=== PATIENT | male | born 1950 | race Caucasian/White ===

== ENCOUNTER → 2017-04-25 | Outpatient (CLI) | payer BC, MEDICARE ==
[2017-04-25 10:50] LABS: Blood Urea Nitrogen 14 mg/dL (9-20); Non-African American GFR(MDRD) >60 (>60 ml/min/1.73 sqM)
--- NOTE | 2017-04-25 12:46 | CT ---
EXAMINATION TYPE: CT abdomen pelvis w con DATE OF EXAM: 04/25/2017 COMPARISON: NONE HISTORY: Patient complains of dysuria and new diagnosis of prostate CA. CT DLP: 1337.5 mGycm Automated exposure control for dose reduction was used. CONTRAST: CT scan of the abdomen pelvis is performed with IV Contrast, patient injected with 100 mL of Omnipaqu e 300. FINDINGS- LUNG BASES-subsegmental linear changes at both lung bases. Correlate for atelectasis. LIVER/GB- No gross abnormality is appreciated. PANCREAS- No gross abnormality is seen. SPLEEN- No gross abnormality is seen. ADRENALS- No gross abnormality is seen. KIDNEYS/BLADDER- no hydronephrosis or nephrolithiasis. Multiple hypodensities are seen within the kid neys which are too small to characterize. BOWEL- no bowel dilatation. Normal appendix. LYMPH NODES- No greater than 1cm abdominal or pelvic lymph nodes areappreciated. OSSEOUS STRUCTURES-hypertrophic change of the spine.. OTHER- atherosclerotic change aorta but no evidence of aneurysm. Prostate is markedly enlarged with calcification and heterogeneous pattern which may be consistent the patient's history of prostate can cer. No regional pathologic adenopathy. Bladder appears distended bilateral hydroceles are noted. IMPRESSION- 1. Marked prostate enlargement compatible with patient's clinical history. Latter is distended with n o evidence of significant wall thickening. 2. Bilateral hydroceles 3. Renal lesions too small to characterize but likely related to cysts.
--- NOTE | 2017-04-25 15:03 | NM ---
EXAMINATION TYPE: NM bone scan whole body DATE OF EXAM: 04/25/2017 COMPARISON: CT abdomen pelvis earlier today. HISTORY: Prostate cancer. Delayed whole-body scanning was performed following the injection of 26.9 mCi Tc 99m MDP. Images acq uired 3.25 hours post injection. Additional imaging of the pelvis and multiple projections is acquire d. FINDINGS: No suspicious scintigraphic uptake is identified to the bone to suggest osseous metastatic disease or other significant osseous abnormality. Enlarged prostate gland causing mass effect on inferior adia n of the bladder is noted. IMPRESSION: No scintigraphic evidence of metastatic disease to the bone.
== END | disposition home or self-care (01) ==
LOC: RADNMMAIN 10:20
PROVIDERS: ATTEND Urology
DX: C61 Malignant neoplasm of prostate (principal); N28.89 Other specified disorders of kidney and ureter; N43.3 Hydrocele, unspecified
CPT/HCPCS: 82565; 84520; 74177; 78306; 36415; A9503; Q9967

== ENCOUNTER 2018-08-11 22:41 | Inpatient (IN) | payer MEDICARE ==
[2018-08-11] MEDS ORDERED: NITROGLYCERIN SL TABS 0.4 MG TAB SUBLINGUAL STA (22:52)
[2018-08-11] MEDS ORDERED: AZITHROMYCIN 500 MG in DEXTROSE 5% IN WATER 250 ML IVPB STA ×2 (22:53)
[2018-08-11] MEDS ORDERED: ACETAMINOPHEN IV (For NPO) 1,000 MG in EMPTY BAG 1 BAG IVPB ONE (22:53)
[2018-08-11 23:00] LABS: Basophils % (A) 0 %; Eosinophils # (A) 0.3 k/uL (0-0.7); Eosinophils % (A) 3 %; HCT 40.6 % (39.0-53.0); HGB 13.9 gm/dL (13.0-17.5); Lymphocytes # (A) 1.7 k/uL (1.0-4.8); Lymphocytes % (A) 18 %; MCH 30.2 pg (25.0-35.0); MCHC 34.2 g/dL (31.0-37.0); MCV 88.1 fL (80.0-100.0); Mean Platelet Volume 7.4; Monocytes # (A) 0.4 k/uL (0-1.0); Monocytes % (A) 4 %; Neutrophils # (A) 6.9 k/uL (1.3-7.7); Neutrophils % (A) 73 %; Platelet Count 315 k/uL (150-450); RBC 4.61 m/uL (4.30-5.90); RDW 13.1 % (11.5-15.5); WBC 9.5 k/uL (3.8-10.6)
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
[2018-08-11] MEDS ORDERED: NITROGLYCERIN-D5W PMX 50 MG in DEXTROSE/WATER 1 250ML.BAG IV ONE (23:01)
[2018-08-11 23:08] LABS: Partial Thromboplastin Time 22.8 sec (22.0-30.0); Prothrombin Time 10.1 sec (9.0-12.0)
--- NOTE | 2018-08-11 23:17 | XR ---
EXAMINATION TYPE: XR chest 1V DATE OF EXAM: 08/11/2018 COMPARISON: None HISTORY: Difficulty breathing TECHNIQUE: Single frontal view of the chest is obtained. FINDINGS: There is some blunting of right costophrenic angle. Heart is enlarged. There is 3 cm round ed density at the left pulmonary hilum. There are chest leads. Thoracic aorta is atheromatous. IMPRESSION: Small pleural effusions. Cardiomegaly. No overt heart failure. Possible mass at the left perihilum or in the left lower lobe. Comparison with old exam would be helpful. Follow-up recommende d.
[2018-08-11 23:30] LABS: Creatine Kinase MB 2.3 ng/mL (0.0-2.4)
[2018-08-12 00:23] LABS: Troponin I 0.037 ng/mL (0.000-0.034)
[2018-08-12 00:43] LABS: ALT 94 U/L (21-72); AST 171 U/L (17-59); Albumin 3.7 g/dL (3.5-5.0); Alkaline Phosphatase 120 U/L (38-126); Anion Gap 10 mmol/L; Blood Urea Nitrogen 20 mg/dL (9-20); Calcium 8.8 mg/dL (8.4-10.2); Carbon Dioxide 24 mmol/L (22-30); Chloride 108 mmol/L (98-107); Glucose 167 mg/dL (74-99); Potassium 4.2 mmol/L (3.5-5.1); Sodium 142 mmol/L (137-145); Total Bilirubin 0.6 mg/dL (0.2-1.3); Total Protein 6.7 g/dL (6.3-8.2)
[2018-08-12] MEDS ORDERED: NITROGLYCERIN OINT 1 INCH/GM PACKET TOPICAL STA (01:07)
[2018-08-12] MEDS ORDERED: NALOXONE 0.4 MG/ML 1 ML VIAL IV PRN (01:10)
[2018-08-12] MEDS ORDERED: ACETAMINOPHEN TAB 325 MG TAB PO PRN (01:43)
[2018-08-12] MEDS ORDERED: ASPIRIN 325 MG TAB PO STA (01:45)
[2018-08-12 01:50] LABS: Appearance,Urine Clear (Clear); Bacteria,Urine Rare /hpf; Bilirubin,Urine Negative (Negative); Blood,Urine Small (Negative); Cellular Casts,Urine 1 /lpf (0); Color,Urine Yellow; Glucose,Urine (UA) Negative (Negative); Granular Casts,Urine 13 /lpf (0); Hyaline Casts,Urine 3 /lpf (0-2); Ketones,Urine Negative (Negative); Leukocyte Esterase,Urine Negative (Negative); Mucus,Urine Rare /hpf; Nitrite,Urine Negative (Negative); PH, Urine 5.5 (5.0-8.0); Protein,Urine 2+ (Negative); RBC,Urine 1 /hpf (0-5); Specific Gravity,Urine 1.022 (1.001-1.035); Urobilinogen,Urine <2.0 mg/dL (<2.0); WBC,Urine 1 /hpf (0-5)
[2018-08-12] MEDS ORDERED: IPRATROPIUM-ALBUTEROL 3 ML NEB INHALATION PRN (01:55)
[2018-08-12] MEDS: HEPARIN SOD,PORK IN 0.45% NACL 25,000 UNIT in 0.45% NACL 1 500ML.BAG IV SCH ×2 (02:05→21:16)
[2018-08-12] MEDS: IPRATROPIUM-ALBUTEROL 3 ML NEB INHALATION SCH ×6 (03:22→23:38)
--- NOTE | 2018-08-12 03:44 | P.HPIM ---
History of Present Illness H&P Date: 08/12/18 Chief Complaint: Shortness of breath The patient is a 68-year-old male presents with a past medical history of prostate cancer status post radiation that presents to the ER with chief complaint of difficulty in breathing. Patient reports his usual state of health approximately last week when over the last 3 days he's been getting progressively short of breath. During that time the patient is noted a nonproductive cough and chest congestion for the last 5 days, Patient states that today he shortness of breath had increased exponentially. Over the last 3 days his reports that patient has been getting out of bed to sleep on the couch. He does report worsening shortness of breath with lying flat. Patient denies any cardiac history. He has any history of smoking. Patient denies any fever. No chest pain. No pain complaints whatsoever. Denies any swelling to the lower extremities. Patient reports intermittent diarrhea since having his radiation therapy, he denies any subjective fevers chills or night sweats. In the ER the patient was noted to be in respiratory distress and was placed on BiPAP, also significantly elevated blood pressures 170/91. He had a comprehensive workup including a chest x-ray that showed small pleural effusions , cardiomegaly, no overt heart failure and a possible mass in the left perihilar in the left lower lobe. NT proBNP was elevated at 2170, troponin elevated at 0.037, patient was started on nitroglycerin drip empiric IV antibiotics with Rocephin and azithromycin. EKG showing sinus tachycardia. Review of Systems Pertinent positives per HPI all other review of systems are otherwise negative Past Medical History Past Medical History: Prostate Disorder History of Any Multi-Drug Resistant Organisms: None Reported Past Surgical History: No Surgical Hx Reported Past Psychological History: No Psychological Hx Reported Smoking Status: Never smoker Past Alcohol Use History: None Reported Past Drug Use History: None Reported - Past Family History Father Family Medical History: Coronary Artery Disease (CAD) Mother Family Medical History: Coronary Artery Disease (CAD) Medications and Allergies Home Medications Medication Instructions Recorded Confirmed Type Loperamide HCl [Imodium A-D] 2 mg PO ONCE PRN 08/11/18 08/11/18 History Tamsulosin [Flomax] 0.4 mg PO HS 08/11/18 08/11/18 History Allergies Allergy/AdvReac Type Severity Reaction Status Date / Time No Known Allergies Allergy Verified 08/11/18 23:04 Physical Exam Vitals: Vital Signs Temp Pulse Pulse Resp BP BP Pulse Ox 08/11/18 23:17 100 30 H 161/76 08/11/18 23:05 106 H 30 H 155/81 94 L 08/11/18 23:00 32 H 08/11/18 22:57 113 H 32 H 170/91 94 L 08/11/18 22:55 97.8 F 117 H 30 H 179/87 94 L 08/11/18 22:43 101.2 F H 145 H 40 H 211/107 94 L Intake and Output 08/11/18 08/11/18 08/12/18 14:59 22:59 06:59 Other: Weight 90.718 kg Constitutional: No acute distress, conversant, pleasant Eyes: Anicteric sclerae, moist conjunctiva, no lid-lag, PERRLA ENMT: NC/AT,Oropharynx clear, no erythema, exudates Neck:Supple, FROM, no masses, or JVD, No carotid bruits; No thyromegaly Lungs: Diminished in the bases bibasilar crackles, Clear to percussion, mild respiratory distress with increased respiratory effort, with accessory muscle use when off BiPAP, oxygen sats 89% Cardiovascular: Heart regular in rate and rhythm, No murmurs, gallops, or rubs no peripheral edema Abdominal: Soft Nontender, nom distended, no guarding, no rebound or rigidity, Normoactive bowel sounds No hepatomegaly, No splenomegaly, No palpable mass No abdominal wall hernia noted Skin: Normal temperature, tone, texture, turgor, No induration No subcutaneous nodules, No rash, lesions, No ulcers Extremities:No digital cyanosis No clubbing, Pedal pulses intact and symmetrical Radial pulses intact and symmetrical Normal gait and station, No calf tenderness Psychiatric: Alert and oriented to person, place and time, Appropriate affect Intact judgement Neuro: Muscles Strength 5/5 in all 4 extremities, Sensation to light touch grossly present throughout, Cranial nerves II-XII grossly intact. No focal sensory deficits Results CBC & Chem 7: 08/11/18 22:49 08/11/18 22:49 Labs: Abnormal Lab Results - Last 24 Hours (Table) 08/11/18 08/11/18 08/12/18 Range/Units 22:49 22:49 00:47 Chloride 108 H (98-107) mmol/L Glucose 167 H (74-99) mg/dL AST 171 H (17-59) U/L ALT 94 H (21-72) U/L Total Creatine Kinase 173 H (55-170) U/L Troponin I 0.037 H* (0.000-0.034) ng/mL Urine Protein 2+ H (Negative) Urine Blood Small H (Negative) Urine Bacteria Rare H (None) /hpf Hyaline Casts 3 H (0-2) /lpf Urine Mucus Rare H (None) /hpf Assessment and Plan (1) Acute respiratory failure with hypoxia Current Visit: Yes Status: Acute Code(s): J96.01 - ACUTE RESPIRATORY FAILURE WITH HYPOXIA SNOMED Code(s): 54164233 (2) Dyspnea Current Visit: Yes Status: Acute Code(s): R06.00 - DYSPNEA, UNSPECIFIED SNOMED Code(s): 206432072 (3) Elevated brain natriuretic peptide (BNP) level Current Visit: Yes Status: Acute Code(s): R79.89 - OTHER SPECIFIED ABNORMAL FINDINGS OF BLOOD CHEMISTRY SNOMED Code(s): 467435636 (4) Elevated troponin Current Visit: Yes Status: Acute Code(s): R74.8 - ABNORMAL LEVELS OF OTHER SERUM ENZYMES SNOMED Code(s): 693084534 (5) Elevated blood pressure reading without diagnosis of hypertension Current Visit: Yes Status: Acute Code(s): R03.0 - ELEVATED BLOOD-PRESSURE READING, W/O DIAGNOSIS OF HTN SNOMED Code(s): 207902244 Plan: [facility] anticipated greater than 2 midnight stay, with acute respiratory failure With concern for underlying CHF given elevated protein BNP and cardiomegaly seen on chest x-ray, patient with bibasilar crackles. We'll continue workup with obtaining a 2-D echo, TSH, d- dimer consult cardiology and pulmonology for further recommendations. Patient started on aspirin given his elevated troponin, despite not having any chest pain we'll continue to trend his troponins the patient is initiated on heparin, pending d-dimer results and CTA of chest if needed. Chest x-ray suggesting possible mass in the perihilum of the left lower lobe. Will initiated the patient on breathing treatments continue BiPAP therapy. Continue nitroglycerin drip for hypertensive emergency and continue to follow patient's clinical course CODE STATUS Full code Discussed plan of care with family Medical power of civil attorney : Milena DVT prophylaxis; on heparin drip Anticipated discharge 3-5 days
--- NOTE | 2018-08-12 04:34 | CT ---
EXAMINATION TYPE: CT angio chest DATE OF EXAM: 08/12/2018 4:25 AM COMPARISON: None HISTORY: r/o PE CT DLP: 354 mGycm Automated exposure control for dose reduction was used. CONTRAST: CTA scan of the thorax is performed with IV Contrast, patient injected with 65 mL of Isovue 370, pulm onary embolism protocol. There are 3-D post processed images.. FINDINGS: There are bilateral pleural effusions and larger on the right side. Heart is enlarged. There is some infiltrate and atelectasis in the right lower lobe. There is 3.5 cm rounded soft tissue masslike density at the left pulmonary hilum. I see no filling defects in the common the arteries. There is no evidence of aortic aneurysm. Ascendi ng aorta measures 3.5 cm. There are few paratracheal lymph nodes that measure up to 1 cm. There are f ew bronchial lymph nodes that measure up to 1 cm. The bony thorax appears intact. IMPRESSION: NO EVIDENCE OF PULMONARY EMBOLISM. BILATERAL PLEURAL EFFUSIONS AND RIGHT BASILAR INFILTRATE AND ATELE CTASIS. SMALL INFILTRATE AND ATELECTASIS AT THE LEFT LUNG BASE. MASS AT THE LEFT PULMONARY HILUM IS SUSPICIOUS FOR TUMOR. THIS IS IN THE SUPERIOR SEGMENT LEFT LOWER LOBE. NONSPECIFIC MEDIASTINAL AND BRONCHIAL LYMPH NODES.
[2018-08-12] MEDS ORDERED: HEPARIN SODIUM,PORCINE 5,000 UNIT/ML 1 ML VIAL IV STA (08:58)
[2018-08-12] MEDS: METOPROLOL SUCCINATE (ER) 25 MG TAB.ER.24H PO SCH (12:38)
[2018-08-12] MEDS: LISINOPRIL 2.5 MG TAB PO SCH (12:38)
[2018-08-12] MEDS: FUROSEMIDE 10 MG/ML 4 ML VIAL IV SCH (12:38)
[2018-08-12] MEDS: LOPERAMIDE 2 MG CAP PO PRN ×2 (13:27→17:21)
--- NOTE | 2018-08-12 13:29 | P.PN ---
Progress Note - Text Progress Note Date: 08/12/18 patient admitted for SOB, and acute hypoxic respiratory failure, along with malignant hypertension found to have elevated troponins CTA negative for acute PE currently on heparin drip due to elevated troponins r/o NSTEMI ACS patient denies CP or shortness of breath at this time
--- NOTE | 2018-08-12 14:43 | ECHOF ---
Referral Reason:Acute Coronary Syndrome MEASUREMENTS -------- HEIGHT: 152.4 cm WEIGHT: 94.8 kg BP: RVIDd: 2.7 cm (< 3.3) IVSd: 1.2 cm (0.6 - 1.1) LVIDd: 6.7 cm (3.9 - 5.3) LVPWd: 1.5 cm (0.6 - 1.1) IVSs: 1.3 cm LVIDs: 5.3 cm LVPWs: 1.6 cm LA Diam: 4.3 cm (2.7 - 3.8) Ao Diam: 4.3 cm (2.0 - 3.7) AV Cusp: 2.1 cm (1.5 - 2.6) LA Diam: 3.4 cm (2.7 - 3.8) MV EXCURSION: 15.228 mm (> 18.000) MV EF SLOPE: 53 mm/s (70 - 150) EPSS: 1.3 cm MV E Reilly: 1.78 m/s MV DecT: 186 ms MV A Reilly: 1.26 m/s MV E/A Ratio: 1.41 FINDINGS -------- Sinus rhythm. This was a technically adequate study. The left ventricular size is normal. There is mild concentric left ventricular hypertrophy. Overa ll left ventricular systolic function is mild-moderately impaired with, an EF between 40 - 45 %. An terseptal Hypokinesis Septal Hypokinesis Peconic Hypokinesis. The right ventricle is normal in size. The left atrium is mildly dilated. The right atrial size is normal. 5.0mg OF Lumason UTLIZED: 2 OR MORE WALL SEGMENTS NOT VISUALIZED. There is mild aortic valve sclerosis. There is [id number] aortic regurgitation. Mild mitral annular calcification present. Moderate mitral regurgitation is present. Mild tricuspid regurgitation present. There is no evidence of pulmonary hypertension. The right v entricular systolic pressure, as measured by Doppler, is {RVSP}. There is no pulmonic regurgitation present. The aortic root size is normal. There is no pericardial effusion. CONCLUSIONS -------- 1. The left ventricular size is normal. 2. Overall left ventricular systolic function is mild-moderately impaired with, an EF between 40 - 45 %. 3. Anterseptal Hypokinesis 4. Septal Hypokinesis 5. [place]conic Hypokinesis. 6. The right ventricle is normal in size. 7. The left atrium is mildly dilated. 8. The right atrial size is normal. 9. 5.0mg OF Lumason UTLIZED: 2 OR MORE WALL SEGMENTS NOT VISUALIZED. 10. There is mild aortic valve sclerosis. 11. There is [id number] aortic regurgitation. 12. Mild mitral annular calcification present. 13. Moderate mitral regurgitation is present. 14. Mild tricuspid regurgitation present. 15. There is no evidence of pulmonary hypertension. 16. The right ventricular systolic pressure, as measured by Doppler, is {RVSP}. 17. There is no pulmonic regurgitation present. 18. The aortic root size is normal. 19. There is no pericardial effusion. SOCIAL SERVICES SPECIALIST: Khushbu Carmichael RDCS
--- NOTE | 2018-08-12 16:00 | P.CNPUL ---
History of Present Illness Consult date: 08/12/18 Reason for consult: dyspnea, chest pain History of present illness: A 68-year-old male patient presented emergency department because of worsening shortness of breath. The is at the bedside and she tells that he is essentially all negative and he does not presented to the hospital unless something major is happening to him. The patient admits that he was getting progressively more short of breath and he got to the point where he was unable to lay down flat and he was able to breathe better upon sitting or standing up. No pleurisy. No hemoptysis. No fever or chills. The patient was having on and off chest pain over the anterior chest without any radiation. No radiation to the back or neck. CAT scan of the chest was done and showed small bilateral pleural effusions. The patient was placed initially on a BiPAP to assist with the breathing and currently is off the BiPAP. He was off her diuretic therapy and the patient improved and this morning he is much less short of breath on 2 L of oxygen by nasal cannula. His proBNP level was above 2000. Troponins were minimally elevated there were positive. The patient was started on nitroglycerin drip to control the blood pressure in the chest pain. The patient was given empiric antibiotic coverage. The patient was started on IV Lasix. EKG showed sinus tachycardia. This morning is much more comfortable. No previous bouts of pneumonia. Most of COPD. No history of recurrent pneumonias. No other complaints otherwise. He is known to have prostate cancer status post radiation therapy to his prostate cancer. Review of Systems Constitutional: Denies chills, Denies fever Eyes: denies blurred vision, denies bulging eye, denies decreased vision Ears: deny: decreased hearing, ear discharge, earache, tinnitus Ears, nose, mouth and throat: Denies headache, Denies sore throat Cardiovascular: Reports decreased exercise tolerance, Reports dyspnea on exertion Respiratory: Reports dyspnea Gastrointestinal: Denies abdominal pain, Denies diarrhea, Denies nausea, Denies vomiting Genitourinary: Reports as per HPI Musculoskeletal: Denies myalgias Musculoskeletal: absent: ankle pain, ankle stiffness, ankle swelling Integumentary: Denies pruritus, Denies rash Neurological: Reports as per HPI Psychiatric: Denies anxiety, Denies depression Endocrine: Reports as per HPI Hematologic/Lymphatic: Reports as per HPI Allergic/Immunologic: Reports as per HPI Past Medical History Past Medical History: Prostate Disorder Additional Past Medical History / Comment(s): Prostate cancer radiation therapy 2017 (44 treatments) History of Any Multi-Drug Resistant Organisms: None Reported Past Surgical History: No Surgical Hx Reported Past Anesthesia/Blood Transfusion Reactions: No Reported Reaction Past Psychological History: No Psychological Hx Reported Smoking Status: Never smoker Past Alcohol Use History: None Reported Past Drug Use History: None Reported - Past Family History Father Family Medical History: Coronary Artery Disease (CAD) Mother Family Medical History: Coronary Artery Disease (CAD) Medications and Allergies Home Medications Medication Instructions Recorded Confirmed Type Loperamide HCl [Imodium A-D] 2 mg PO ONCE PRN 08/11/18 08/11/18 History Tamsulosin [Flomax] 0.4 mg PO HS 08/11/18 08/11/18 History Allergies Allergy/AdvReac Type Severity Reaction Status Date / Time No Known Allergies Allergy Verified 08/11/18 23:04 Physical Exam Vitals: Vital Signs Temp Pulse Pulse Resp BP BP Pulse Ox 08/12/18 15:34 76 16 08/12/18 12:19 82 08/12/18 12:07 80 08/12/18 12:00 97.6 F 76 16 143/73 96 08/12/18 08:33 80 08/12/18 08:21 78 95 08/12/18 08:00 97.3 F L 80 16 142/71 97 08/12/18 04:00 18 08/12/18 03:23 77 08/12/18 03:06 81 18 132/73 97 08/12/18 01:39 97.7 F 83 18 155/73 94 L 08/12/18 01:28 90 20 156/80 98 08/12/18 00:58 85 24 140/75 97 08/12/18 00:28 88 24 135/73 97 08/11/18 23:58 96 26 H 140/75 97 08/11/18 23:17 100 30 H 161/76 08/11/18 23:05 106 H 30 H 155/81 94 L 08/11/18 23:00 32 H 08/11/18 22:57 113 H 32 H 170/91 94 L 08/11/18 22:55 97.8 F 117 H 30 H 179/87 94 L 08/11/18 22:43 101.2 F H 145 H 40 H 211/107 94 L Intake and Output 08/12/18 08/12/18 08/12/18 06:59 14:59 22:59 Intake Total 40 404.001 Output Total 1050 Balance 40 -645.999 Intake: IV 40 .9 40 Intake, IV Titration 164.001 Amount Heparin Sod,Pork in 0.45% 164.001 NaCl 25,000 unit In 0.45 % NaCl 1 500ml.bag @ 20 mls/hr IV .Q24H [facility] Rx#: [id number] Oral 240 Output: Urine 1050 Other: Voiding Method Urinal Urinal # Voids 1 Weight 95.1 kg Constitutional: No acute distress, conversant, pleasant, the patient is currently off BiPAP on 2 L approximately nasal cannula. Eyes: Anicteric sclerae, moist conjunctiva, no lid-lag, PERRLA ENMT: NC/AT,Oropharynx clear, no erythema, exudates Neck:Supple, Neck was supple and without jugular venous distension, thyromegaly , or carotid bruits. Carotids were easily palpable bilaterally. There was no adenopathy. Lungs: Diminished in the bases bibasilar crackles, the breast on the diminished in lung bases bilaterally. No wheezing. No rhonchi. Chest expansion symmetrical bilaterally. Cardiovascular: Heart regular in rate and rhythm, No murmurs, gallops, or rubs no peripheral edema Abdominal: Soft Nontender, nom distended, no guarding, no rebound or rigidity, Normoactive bowel sounds No hepatomegaly, No splenomegaly, No palpable mass No abdominal wall hernia noted Skin: Normal temperature, tone, texture, turgor, No induration No subcutaneous nodules, No rash, lesions, No ulcers Extremities:No digital cyanosis No clubbing, Pedal pulses intact and symmetrical Radial pulses intact and symmetrical Normal gait and station, No calf tenderness Psychiatric: Alert and oriented to person, place and time, Appropriate affect Intact judgement Neuro: Muscles Strength 5/5 in all 4 extremities, Sensation to light touch grossly present throughout, Cranial nerves II-XII grossly intact. No focal sensory deficits Results - Laboratory Findings CBC and BMP: 08/11/18 22:49 08/11/18 22:49 PT/INR, D-dimer PT 10.1 sec (9.0-12.0) 10/05/18 22:49 INR 1.0 (<1.2) 08/11/18 22:49 D-Dimer 0.99 mg/L FEU (<0.60) H 08/11/18 22:49 Abnormal lab findings: Abnormal Labs 08/11/18 08/11/18 08/11/18 22:49 22:49 22:49 APTT D-Dimer 0.99 H Chloride 108 H Glucose 167 H AST 171 H ALT 94 H Total Creatine Kinase 173 H Troponin I 0.037 H* Urine Protein Urine Blood Urine Bacteria Hyaline Casts Urine Mucus 08/12/18 08/12/18 08/12/18 00:47 05:22 08:08 APTT 31.1 H D-Dimer Chloride Glucose AST ALT Total Creatine Kinase Troponin I 0.289 H* Urine Protein 2+ H Urine Blood Small H Urine Bacteria Rare H Hyaline Casts 3 H Urine Mucus Rare H 08/12/18 10:53 APTT D-Dimer Chloride Glucose AST ALT Total Creatine Kinase Troponin I 0.225 H* Urine Protein Urine Blood Urine Bacteria Hyaline Casts Urine Mucus - Diagnostic Findings Chest x-ray: image reviewed Assessment and Plan Plan: Assessment 1 Acute hypoxic respiratory failure secondary to CHF/pulmonary edema, improved with diuretic therapy and the patient is currently on 2 L of oxygen by nasal cannula. The patient was briefly supported with BiPAP therapy and currently is on 2 L and is currently off the BiPAP. 2 chest pain with positive troponins, rule out acute non-ST elevation myocardial infarction, currently free of any chest pain. The echocardiogram showing a segmental wall motion abnormalities in based on that the patient will need further investigation with a cardiac catheterization. 3 acute hypertensive reaction, improved and the patient is currently off the nitroglycerin drip 4 CHF with mild impairment of the left and a ejection fraction at 40-45% along with segmental wall motion abnormalities 5 prostate cancer with previous radiation therapy 6 hypertension Plan Continue diuretic therapy with Lasix 40 mg on a daily basis. Keep the patient off the BiPAP. Nitroglycerin may be weaned off and discontinued. Start metoprolol 25 mg by mouth daily and Zestril 2.5 mg by mouth daily. IV heparin. Cardiac catheterization with the next 24-48 hours and the patient has segmental wall motion abnormalities and positive troponin and an underlying coronary artery disease needs to be ruled out especially in the setting of acute chest pain and heart failure. Case was discussed. Cardiology is on the case. . No need for antibiotic therapy at this point in time. We'll continue to follow.
--- NOTE | 2018-08-12 18:00 | CONS ---
CONSULTATION CHIEF COMPLAINT: Shortness of breath. HISTORY OF PRESENT ILLNESS: Rudy is a 68-year-old gentleman with history of CA prostate, who presented to hospital with progressively worsening shortness of breath of 2 weeks duration. He states that he did a lot of physical work, cut many trees, but was becoming more and more short of breath. He did not have any chest pain. He comes into the hospital. His BNP is elevated. Troponins are mildly elevated as was the D-dimer. He had a CT scan of the chest that is negative for pulmonary embolism. He has small bilateral pleural effusions and has a left hilar mass. There is history of smoking, but he quit almost 11 years ago. His BNP is elevated and he also has small pleural effusion. EKG does not reveal acute ischemic changes. His clinical presentation is consistent with acute onset congestive heart failure. Patient also had a small non ST-segment elevation [place]. His symptoms may also be related to the left hilar mass. I am going to obtain a 2D echo on him to evaluate his LV function and wall motion. I am going to wait for the primary to evaluate the hilar mass. Once we know that it is not a malignancy, then we might consider doing a cardiac catheterization on him to evaluate his coronary anatomy if we have to. In the meantime, I am going to treat him with IV Lasix, beta blockers and BRITTNEY inhibitors. PAST MEDICAL HISTORY: Significant for CA of the prostate, status post radiation therapy. MEDICATIONS: He is on Flomax. ALLERGIES: No known drug allergies. FAMILY HISTORY: Negative for premature coronary artery disease. PHYSICAL EXAMINATION: Vital signs are stable. There is no jugular venous distention. Chest exam reveals occasional rhonchi bilaterally. Heart exam reveals first and second heart sounds. No gallop. No murmur. Abdomen is soft, nontender. Exam of extremities did not reveal any edema. Peripheral pulses are felt. F[employer]TING [employer]ACHINE [employer]ATOR exam did not reveal focal neurological deficits. EKG shows sinus tachycardia without acute ST-T wave changes. LAB: Showed that the hemoglobin is 13.9, potassium is 4.2, creatinine is 0.82. Two sets of troponins are elevated. D-dimer is abnormal, but CT chest is negative for pulmonary embolism. BNP is elevated. ASSESSMENT: 1. Acute onset congestive heart failure. 2. Acute non ST-segment elevation myocardial infarction. 3. Left hilar mass. PLAN: I am going to treat the patient with IV Lasix. Continue the IV heparin. I will obtain a 2D echo. Start him on BRITTNEY inhibitors and beta blockers. MMAGNES / ASHLEYN: [id number] /
[2018-08-12] MEDS: TAMSULOSIN 0.4 MG CAP.ER.24H PO SCH (20:25)
[2018-08-13] MEDS: IPRATROPIUM-ALBUTEROL 3 ML NEB INHALATION SCH ×6 (03:28→20:05)
[2018-08-13 06:36] LABS: Basophils % (A) 1 %; Eosinophils # (A) 0.2 k/uL (0-0.7); Eosinophils % (A) 3 %; HCT 36.1 % (39.0-53.0); HGB 11.9 gm/dL (13.0-17.5); Lymphocytes # (A) 0.9 k/uL (1.0-4.8); Lymphocytes % (A) 19 %; MCHC 32.8 g/dL (31.0-37.0); MCV 91.4 fL (80.0-100.0); Mean Platelet Volume 7.5; Monocytes # (A) 0.3 k/uL (0-1.0); Monocytes % (A) 6 %; Neutrophils # (A) 3.5 k/uL (1.3-7.7); Neutrophils % (A) 70 %; Platelet Count 203 k/uL (150-450); RBC 3.96 m/uL (4.30-5.90); RDW 13.3 % (11.5-15.5)
[2018-08-13 06:57] LABS: Anion Gap 6 mmol/L; Blood Urea Nitrogen 19 mg/dL (9-20); Calcium 8.7 mg/dL (8.4-10.2); Carbon Dioxide 27 mmol/L (22-30); Chloride 108 mmol/L (98-107); Cholesterol 154 mg/dL (<200); Glucose 90 mg/dL (74-99); HDL Cholesterol 46 mg/dL (40-60); LDL Cholesterol,Calculated 91 mg/dL (0-99); Potassium 3.7 mmol/L (3.5-5.1); Sodium 141 mmol/L (137-145); Triglycerides 87 mg/dL (<150)
[2018-08-13] MEDS ORDERED: HEPARIN SODIUM,PORCINE 5,000 UNIT/ML 1 ML VIAL IV STA (08:03)
[2018-08-13] MEDS: LISINOPRIL 2.5 MG TAB PO SCH (08:21)
[2018-08-13] MEDS: ASPIRIN 325 MG TAB PO SCH (08:21)
[2018-08-13] MEDS: FUROSEMIDE 10 MG/ML 4 ML VIAL IV SCH (08:21)
[2018-08-13] MEDS: METOPROLOL SUCCINATE (ER) 25 MG TAB.ER.24H PO SCH (08:21)
--- NOTE | 2018-08-13 11:18 | P.PN ---
Addendum entered and electronically signed by Sandee John ALLERGIST/MDKenishaC 08/13/18 13:40: Pulmonary mass at the left pulmonary hilum, noted on the CT angios of the chest. This will likely require a navigational bronchoscopy. Patient's may proceed with heart catheterization tomorrow, he will need cardiac clearance before proceeding with navigational bronchoscopy as it will require general anesthesia. This was discussed with cardiology, with the patient and the family. The first step is to optimize patient's cardiac status, and then proceed with workup of the left pulmonary hilar mass. Original Note: <Sandee John - Last Filed: 08/13/18 11:13> Subjective Progress Note Date: 08/13/18 Principal diagnosis: Acute hypoxic respiratory failure secondary to CHF/pulmonary edema, chest pain, rule out acute non-ST elevated MO A 68-year-old male patient presented emergency department because of worsening shortness of breath. The is at the bedside and she tells that he is essentially all negative and he does not presented to the hospital unless something major is happening to him. The patient admits that he was getting progressively more short of breath and he got to the point where he was unable to lay down flat and he was able to breathe better upon sitting or standing up. No pleurisy. No hemoptysis. No fever or chills. The patient was having on and off chest pain over the anterior chest without any radiation. No radiation to the back or neck. CAT scan of the chest was done and showed small bilateral pleural effusions. The patient was placed initially on a BiPAP to assist with the breathing and currently is off the BiPAP. He was off her diuretic therapy and the patient improved and this morning he is much less short of breath on 2 L of oxygen by nasal cannula. His proBNP level was above 2000. Troponins were minimally elevated there were positive. The patient was started on nitroglycerin drip to control the blood pressure in the chest pain. The patient was given empiric antibiotic coverage. The patient was started on IV Lasix. EKG showed sinus tachycardia. This morning is much more comfortable. No previous bouts of pneumonia. Most of COPD. No history of recurrent pneumonias. No other complaints otherwise. He is known to have prostate cancer status post radiation therapy to his prostate cancer. On 08/13/2018 patient seen in follow-up on selective care unit. He required BiPAP support last night, breathing easier, though he still has some difficulty breathing when laying down. Currently on 2 L per nasal cannula his pulse ox is 97%, he is afebrile, hemodynamically stable, lung sounds are positive for coarse bilateral lower bases crackles. He is diuresing, he is in -1300 mL fluid balance, his weight is down by 1.6 kg. He is on IV Lasix 40 mg once daily , remains on heparin. Has not had any recurrence of chest pain.He is scheduled for heart catheterization tomorrow. Objective - Vital Signs Vital signs: Vital Signs Temp 97.9 F 08/13/18 08:00 Pulse 80 08/13/18 08:38 Resp 18 08/13/18 08:26 BP 133/72 08/13/18 04:00 Pulse Ox 97 08/13/18 08:00 Intake & Output 08/12/18 08/13/18 08/13/18 18:59 06:59 18:59 Intake Total 404.001 436.997 532.961 Output Total 1050 1100 Balance -645.999 -663.003 532.961 Weight 93.5 kg Intake: Intake, IV Titration 164.001 316.997 292.961 Amount Heparin Sod,Pork in 0.45% 164.001 316.997 292.961 NaCl 25,000 unit In 0.45 % NaCl 1 500ml.bag @ 20 mls/hr IV .Q24H [facility] Rx#: [id number] Oral 240 120 240 Output: Urine 1050 1100 Other: Voiding Method Urinal Urinal # Voids 1 - Exam GENERAL EXAM: Alert, pleasant 5-year-old white male comfortable in no apparent distress. HEAD: Normocephalic/atraumatic. EYES: Normal reaction of pupils, equal size. Conjunctiva pink, sclera white. NOSE: Clear with pink turbinates. THROAT: No erythema or exudates. NECK: No masses, no JVD, no thyroid enlargement, no adenopathy. CHEST: No chest wall deformity. Symmetrical expansion. LUNGS: Equal air entry with coarse bibasilar crackles, but no wheeze, rhonchi or dullness. CVS: Regular rate and rhythm, normal S1 and S2, no gallops, no murmurs, no rubs ABDOMEN: Soft, nontender. No hepatosplenomegaly, normal bowel sounds, no guarding or rigidity. EXTREMITIES: No clubbing, no edema, no cyanosis, 2+ pulses and upper and lower extremities. MUSCULOSKELETAL: Muscle strength and tone normal. SPINE: No scoliosis or deformity SKIN: No rashes CENTRAL NERVOUS SYSTEM: Alert and oriented -3. No focal deficits, tone is normal in all 4 extremities. PSYCHIATRIC: Alert and oriented -3. Appropriate affect. Intact judgment and insight. - Labs CBC & Chem 7: 08/13/18 06:06 08/13/18 06:06 Labs: Abnormal Lab Results - Last 24 Hours (Table) 08/12/18 08/12/18 08/13/18 Range/Units 10:53 15:11 06:06 RBC (4.30-5.90) m/uL Hgb (13.0-17.5) gm/dL Hct (39.0-53.0) % Lymphocytes # (1.0-4.8) k/uL APTT 49.0 H (22.0-30.0) sec Chloride 108 H (98-107) mmol/L Troponin I 0.225 H* (0.000-0.034) ng/mL 08/13/18 08/13/18 Range/Units 06:06 06:06 RBC 3.96 L (4.30-5.90) m/uL Hgb 11.9 L (13.0-17.5) gm/dL Hct 36.1 L (39.0-53.0) % Lymphocytes # 0.9 L (1.0-4.8) k/uL APTT 40.0 H (22.0-30.0) sec Chloride (98-107) mmol/L Troponin I (0.000-0.034) ng/mL Microbiology - Last 24 Hours (Table) 08/11/18 22:49 Blood Culture - Preliminary Blood No Growth after 24 hours 08/12/18 00:47 Urine Culture - Preliminary Urine,Voided Assessment and Plan Plan: 1 Acute hypoxic respiratory failure secondary to CHF/pulmonary edema, improved with diuretic therapy and the patient is currently on 2 L of oxygen by nasal cannula. The patient was briefly supported with BiPAP therapy and currently is on 2 L and is currently off the BiPAP. 2 chest pain with positive troponins, rule out acute non-ST elevation myocardial infarction, currently free of any chest pain. The echocardiogram showing a segmental wall motion abnormalities in based on that the patient will need further investigation with a cardiac catheterization. 3 acute hypertensive reaction, improved and the patient is currently off the nitroglycerin drip 4 CHF with mild impairment of the left and a ejection fraction at 40-45% along with segmental wall motion abnormalities 5 prostate cancer with previous radiation therapy 6 hypertension Plan: Continue the IV diuretics, BiPAP as needed. Patient has been scheduled for heart catheterization tomorrow. We'll continue to follow I performed a history & physical examination of the patient and discussed their management with my nurse practitioner, Sandee John. I reviewed the nurse practitioner's note and agree with the documented findings and plan of care. Lung sounds are positive for coarse bibasilar crackles. The findings and the impression was discussed with the patient. I attest to the documentation by the nurse practitioner. Time with Patient: Less than 30 <Soledad Joiner - Last Filed: 08/13/18 14:41> Objective - Vital Signs Vital signs: Vital Signs Temp 98.0 F 08/13/18 12:00 Pulse 72 08/13/18 12:10 Resp 18 08/13/18 12:00 BP 145/77 08/13/18 12:00 Pulse Ox 96 08/13/18 12:00 Intake & Output 08/12/18 08/13/18 08/13/18 18:59 06:59 18:59 Intake Total 404.001 436.997 652.961 Output Total 1050 1100 900 Balance -645.999 -663.003 -247.039 Weight 93.5 kg Intake: Intake, IV Titration 164.001 316.997 292.961 Amount Heparin Sod,Pork in 0.45% 164.001 316.997 292.961 NaCl 25,000 unit In 0.45 % NaCl 1 500ml.bag @ 20 mls/hr IV .Q24H [facility] Rx#: [id number] Oral 240 120 360 Output: Urine 1050 1100 900 Other: Voiding Method Urinal Urinal # Voids 1 - Labs CBC & Chem 7: 08/13/18 06:06 08/13/18 06:06 Labs: Abnormal Lab Results - Last 24 Hours (Table) 10/06/18 10/07/18 10/07/18 Range/Units 15:11 06:06 06:06 RBC 3.96 L (4.30-5.90) m/uL Hgb 11.9 L (13.0-17.5) gm/dL Hct 36.1 L (39.0-53.0) % Lymphocytes # 0.9 L (1.0-4.8) k/uL APTT 49.0 H (22.0-30.0) sec Chloride 108 H (98-107) mmol/L 08/13/18 Range/Units 06:06 RBC (4.30-5.90) m/uL Hgb (13.0-17.5) gm/dL Hct (39.0-53.0) % Lymphocytes # (1.0-4.8) k/uL APTT 40.0 H (22.0-30.0) sec Chloride (98-107) mmol/L Microbiology - Last 24 Hours (Table) 08/12/18 00:47 Urine Culture - Final Urine,Voided 08/11/18 22:49 Blood Culture - Preliminary Blood No Growth after 24 hours Assessment and Plan Plan: Review the CAT scan of the chest and there is a suspicious infrahilar left lung mass that needs to be addressed later stage. We'll complete the cardiac workup and subsequently the patient would likely need a bronchoscopy which I prefer to do it under navigational guidance regarding this left hilar mass. We'll continue to follow.
--- NOTE | 2018-08-13 12:39 | P.PN ---
Subjective Progress Note Date: 08/13/18 Principal diagnosis: Patient is followed up for acute hypoxic respiratory failure secondary to new onset acute left-sided systolic CHF with concerns for underlying NSTEMI Patient seen and examined today, he is currently not on BiPAP, he is breathing better still complaining of orthopnea, denies any further chest pain. Patient has been diuresing well currently on negative balance. Denies any shortness of breath at rest. Patient was updated about his test results. Patient is anticipating left heart cath in the morning Objective - Vital Signs Vital signs: Vital Signs Temp 97.9 F 08/13/18 08:00 Pulse 72 08/13/18 12:10 Resp 16 08/13/18 11:59 BP 133/72 08/13/18 04:00 Pulse Ox 97 08/13/18 08:00 Intake & Output 08/12/18 08/13/18 08/13/18 18:59 06:59 18:59 Intake Total 404.001 436.997 532.961 Output Total 1050 1100 Balance -645.999 -663.003 532.961 Weight 93.5 kg Intake: Intake, IV Titration 164.001 316.997 292.961 Amount Heparin Sod,Pork in 0.45% 164.001 316.997 292.961 NaCl 25,000 unit In 0.45 % NaCl 1 500ml.bag @ 20 mls/hr IV .Q24H [facility] Rx#: [id number] Oral 240 120 240 Output: Urine 1050 1100 Other: Voiding Method Urinal Urinal # Voids 1 - Exam Constitutional: vital signs stable, Not in acute distress, pleasant, conversant Lungs: Good breath sounds bilaterally, there is inspiratory rales at left lung base , normal respiratory effort no use of accessory muscles Cardiovascular: Regular rate and rhythm, no murmurs, no gallops, no rubs, no peripheral edema Gastrointestinal: Soft, no tenderness to palpation, no palpable hepatosplenomegally, bowel sounds positive Extremities: No digital cyanosis or clubbing, peripheral pulses palpable and equal over bilateral radial arteries and dorsalis pedis artery, no calf muscle tenderness Psych: Alert, oriented to place, person and time, appropriate affect, intact judgment - Labs CBC & Chem 7: 08/13/18 06:06 08/13/18 06:06 Labs: Abnormal Lab Results - Last 24 Hours (Table) 08/12/18 08/13/18 08/13/18 Range/Units 15:11 06:06 06:06 RBC 3.96 L (4.30-5.90) m/uL Hgb 11.9 L (13.0-17.5) gm/dL Hct 36.1 L (39.0-53.0) % Lymphocytes # 0.9 L (1.0-4.8) k/uL APTT 49.0 H (22.0-30.0) sec Chloride 108 H (98-107) mmol/L 08/13/18 Range/Units 06:06 RBC (4.30-5.90) m/uL Hgb (13.0-17.5) gm/dL Hct (39.0-53.0) % Lymphocytes # (1.0-4.8) k/uL APTT 40.0 H (22.0-30.0) sec Chloride (98-107) mmol/L Microbiology - Last 24 Hours (Table) 08/12/18 00:47 Urine Culture - Final Urine,Voided 08/11/18 22:49 Blood Culture - Preliminary Blood No Growth after 24 hours Assessment and Plan Assessment: 68-year-old male with history of prostate cancer status post radiation therapy. Patient presented to the ED due to acute onset difficulty in breathing he was found to be in acute hypoxic respiratory failure along with malignant hypertension. CT angiogram the chest was performed in the ED initially which was negative for acute PE. Patient had elevated cardiac enzymes for which was suspicious for non-STEMI and he was started on heparin drip for that. Further testing with 2-D echocardiogram revealed segmental wall hypokinesis, with acute left systolic CHF left ventricular ejection fraction of 4045 percent. Patient has been diuresing well on IV Lasix currently on negative balance lost around 4 pounds of weight. Plans for left heart cath in the morning Plan: Acute hypoxic respiratory failure secondary to pulmonary edema Malignant hypertension New onset CHF Non-STEMI Continue with IV diuresis, patient continues to be on negative balance Continue with heparin drip Plans for left heart cath in the morning Continue with aspirin Continue with lisinopril and metoprolol History of prostate cancer status post radiation therapy Continue Flomax Mild anemia Asymptomatic No evidence of GI bleeding DVT prophylaxis Patient currently on heparin drip for non-STEMI
--- NOTE | 2018-08-13 14:52 | P.PN ---
Subjective Progress Note Date: 08/13/18 This is a 5-year-old male patient who presented to hospital with increasing shortness of breath 2 weeks. Patient is normally physically active but noticed that he was becoming more more short of breath. He denies any chest discomfort at that time. Pro BNP was found to be elevated and chest x- ray showed some congestive heart failure. Troponins were also elevated consistent with acute NSTEMI. Patient does not have a history of cardiac disease in the past. He's been started on IV heparin and IV Lasix, BRITTNEY inhibitor and beta víctor therapy. Echocardiogram showed a normal LV size with moderately impaired function with ejection fraction of 40-45%. Anterior septal, septal and apex hypokinesis. The patient continues to diurese. He is hemodynamically stable. Remains in a normal sinus mechanism on the monitor. He has not had any chest discomfort overnight and his shortness breath has improved. He does have orthopnea and is afraid to lie down flat while he sleeps. Minimal shortness of breath with exertion while he ambulates to the bathroom. Objective - Vital Signs Vital signs: Vital Signs Temp 98.0 F 08/13/18 12:00 Pulse 72 08/13/18 12:10 Resp 18 08/13/18 12:00 BP 145/77 08/13/18 12:00 Pulse Ox 96 08/13/18 12:00 Intake & Output 08/12/18 08/13/18 08/13/18 18:59 06:59 18:59 Intake Total 404.001 436.997 652.961 Output Total 1050 1100 900 Balance -645.999 -663.003 -247.039 Weight 93.5 kg Intake: Intake, IV Titration 164.001 316.997 292.961 Amount Heparin Sod,Pork in 0.45% 164.001 316.997 292.961 NaCl 25,000 unit In 0.45 % NaCl 1 500ml.bag @ 20 mls/hr IV .Q24H [facility] Rx#: [id number] Oral 240 120 360 Output: Urine 1050 1100 900 Other: Voiding Method Urinal Urinal # Voids 1 - Exam GENERAL EXAM: Alert, pleasant 68-year-old white male comfortable in no apparent distress. NECK: No masses, no JVD, no thyroid enlargement, no adenopathy. LUNGS: Equal air entry with fine bibasilar crackles, but no wheeze, rhonchi or dullness. Heart: Regular rate and rhythm, normal S1 and S2, no gallops, no murmurs, no rubs ABDOMEN: Soft, nontender. No hepatosplenomegaly, normal bowel sounds, no guarding or rigidity. EXTREMITIES: No clubbing, no edema, no cyanosis, 2+ pulses and upper and lower extremities. PSYCHIATRIC: Alert and oriented -3. Appropriate affect. Intact judgment and insight. - Labs CBC & Chem 7: 08/13/18 06:06 08/13/18 06:06 Labs: Abnormal Lab Results - Last 24 Hours (Table) 08/12/18 08/13/18 08/13/18 Range/Units 15:11 06:06 06:06 RBC 3.96 L (4.30-5.90) m/uL Hgb 11.9 L (13.0-17.5) gm/dL Hct 36.1 L (39.0-53.0) % Lymphocytes # 0.9 L (1.0-4.8) k/uL APTT 49.0 H (22.0-30.0) sec Chloride 108 H (98-107) mmol/L 08/13/18 Range/Units 06:06 RBC (4.30-5.90) m/uL Hgb (13.0-17.5) gm/dL Hct (39.0-53.0) % Lymphocytes # (1.0-4.8) k/uL APTT 40.0 H (22.0-30.0) sec Chloride (98-107) mmol/L Microbiology - Last 24 Hours (Table) 08/12/18 00:47 Urine Culture - Final Urine,Voided 08/11/18 22:49 Blood Culture - Preliminary Blood No Growth after 24 hours Assessment and Plan Assessment: Acute NSTEMI Acute systolic heart failure Acute hypoxic respiratory failure with evidence of hilar mass on CT Prostate cancer status post radiation therapy Hypertension Plan: Echocardiogram shows normal LV size with mild to moderate impaired systolic function, EF is 40-45%. Anterior septal, septal and apex hypokinesis noted. The patient's abnormal CAT scan was discussed with pulmonology and they are recommending to proceed with cardiac catheterization. Patient will be continued on heparin and Lasix. Preoperative cardiac catheterization orders have been entered. The rationale, risks and benefits have been discussed with the patient and he is in agreement to this treatment plan. He'll be kept nothing by mouth after midnight.
[2018-08-13] MEDS: HEPARIN SOD,PORK IN 0.45% NACL 25,000 UNIT in 0.45% NACL 1 500ML.BAG IV SCH (16:28)
[2018-08-13] MEDS ORDERED: IPRATROPIUM-ALBUTEROL 3 ML NEB INHALATION PRN (20:00)
[2018-08-13] MEDS: TAMSULOSIN 0.4 MG CAP.ER.24H PO SCH (20:33)
[2018-08-14] MEDS: SODIUM CHLORIDE 0.9% 1,000 ML IV SCH ×4 (05:48→21:47)
[2018-08-14] MEDS ORDERED: ATORVASTATIN 80 MG TAB PO STA (05:48)
[2018-08-14] MEDS: LISINOPRIL 2.5 MG TAB PO SCH (05:52)
[2018-08-14] MEDS: METOPROLOL SUCCINATE (ER) 25 MG TAB.ER.24H PO SCH (05:53)
[2018-08-14] MEDS: ASPIRIN 325 MG TAB PO SCH (05:53)
[2018-08-14] MEDS: IPRATROPIUM-ALBUTEROL 3 ML NEB INHALATION SCH ×4 (06:52→20:09)
[2018-08-14 07:03] LABS: HCT 34.5 % (39.0-53.0); HGB 11.3 gm/dL (13.0-17.5); MCH 29.7 pg (25.0-35.0); MCHC 32.6 g/dL (31.0-37.0); MCV 90.9 fL (80.0-100.0); Mean Platelet Volume 7.6; Platelet Count 200 k/uL (150-450); RDW 13.3 % (11.5-15.5); WBC 5.8 k/uL (3.8-10.6)
[2018-08-14 07:16] LABS: Anion Gap 6 mmol/L; Blood Urea Nitrogen 21 mg/dL (9-20); Calcium 8.5 mg/dL (8.4-10.2); Carbon Dioxide 28 mmol/L (22-30); Chloride 109 mmol/L (98-107); Glucose 97 mg/dL (74-99); Potassium 3.5 mmol/L (3.5-5.1); Sodium 143 mmol/L (137-145)
[2018-08-14] MEDS ORDERED: Potassium Replacement Protocol 1 EACH MISC MISCELLANE PRN (08:33)
[2018-08-14] MEDS: POTASSIUM CHLORIDE ER 20 MEQ TAB.ER PO SCH ×2 (09:03→15:04)
[2018-08-14] MEDS ORDERED: IV FLUID CONTINUATION 1,000 ML IV ONE ×2 (09:46→12:28)
[2018-08-14] MEDS ORDERED: LIDOCAINE 1% INJ 10MG/ML (20 ML MDV) ONE ×2 (09:54→12:05)
[2018-08-14] MEDS ORDERED: MIDAZOLAM 2 MG/2 ML VIAL ONE ×2 (09:54→12:05)
[2018-08-14] MEDS ORDERED: fentaNYL (PF) 50 MCG/ML 2 ML AMP ONE (09:54)
[2018-08-14] MEDS ORDERED: MIDAZOLAM 2 MG/2 ML VIAL IV ONE ×2 (10:25→12:28)
[2018-08-14] MEDS ORDERED: fentaNYL (PF) 50 MCG/ML 2 ML AMP IV ONE (10:25)
[2018-08-14] MEDS ORDERED: LIDOCAINE 1% INJ 10MG/ML (20 ML MDV) SQ ONE (10:27)
--- NOTE | 2018-08-14 10:59 | CC ---
CARDIAC CATHETERIZATION REPORT INDICATION: Non ST-segment elevation CT. PROCEDURE NOTE: After obtaining informed consent, left heart catheterization and coronary angiogram were performed via the right femoral artery using standard Sheyla catheters. The patient tolerated the procedure well without any obvious immediate complications. FINDINGS: HEMODYNAMICS: Left ventricular end-diastolic pressure is 12 mm. There is no significant gradient across aortic valve. LEFT VENTRICULOGRAM: Left angiogram is not performed. ANGIOGRAPHIC DATA: Left main coronary artery: Left main coronary artery is a normal-sized vessel and is free of stenosis. Divides into left anterior descending coronary artery and circumflex coronary artery. LAD and its branches are free of significant stenosis. Circumflex coronary artery is a codominant vessel and is free of stenosis. Right coronary artery shows a 60-70 percent stenosis in its midportion. CONCLUSION: 60-70 percent stenosis involving mid RCA. PLAN: I am going to have Dr. Fernandez review the angiographic data, either perform angioplasty of the right coronary artery, or do an FFR. If the patient is to have an angioplasty, we are going to do a bare metal stent. MMODL / IJN: [id number] /
[2018-08-14] MEDS ORDERED: IOPAMIDOL-370 125ML BTL INJ ONE (11:13)
--- NOTE | 2018-08-14 11:21 | P.PN ---
Subjective Progress Note Date: 08/14/18 Principal diagnosis: Acute hypoxic respiratory failure secondary to CHF/pulmonary edema, chest pain, rule out acute non-ST elevated IA A 68-year-old male patient presented emergency department because of worsening shortness of breath. The is at the bedside and she tells that he is essentially all negative and he does not presented to the hospital unless something major is happening to him. The patient admits that he was getting progressively more short of breath and he got to the point where he was unable to lay down flat and he was able to breathe better upon sitting or standing up. No pleurisy. No hemoptysis. No fever or chills. The patient was having on and off chest pain over the anterior chest without any radiation. No radiation to the back or neck. CAT scan of the chest was done and showed small bilateral pleural effusions. The patient was placed initially on a BiPAP to assist with the breathing and currently is off the BiPAP. He was off her diuretic therapy and the patient improved and this morning he is much less short of breath on 2 L of oxygen by nasal cannula. His proBNP level was above 2000. Troponins were minimally elevated there were positive. The patient was started on nitroglycerin drip to control the blood pressure in the chest pain. The patient was given empiric antibiotic coverage. The patient was started on IV Lasix. EKG showed sinus tachycardia. This morning is much more comfortable. No previous bouts of pneumonia. Most of COPD. No history of recurrent pneumonias. No other complaints otherwise. He is known to have prostate cancer status post radiation therapy to his prostate cancer. On 08/13/2018 patient seen in follow-up on selective care unit. He required BiPAP support last night, breathing easier, though he still has some difficulty breathing when laying down. Currently on 2 L per nasal cannula his pulse ox is 97%, he is afebrile, hemodynamically stable, lung sounds are positive for coarse bilateral lower bases crackles. He is diuresing, he is in -1300 mL fluid balance, his weight is down by 1.6 kg. He is on IV Lasix 40 mg once daily , remains on heparin. Has not had any recurrence of chest pain.He is scheduled for heart catheterization tomorrow. On 08/14/2018 patient seen in follow-up on selective care unit. No recurrent episodes of chest pain, or shortness of breath, currently on room air, did not require BiPAP support last night, breathing easier, lung sounds are still positive for coarse crackles at bilateral bases, he is afebrile. Patient is scheduled for cardiac catheterization today. Today's labs were noted. He is on IV Lasix at 40 mg once daily. Heparin drip continues. Objective - Vital Signs Vital signs: Vital Signs Temp 98.6 F 08/14/18 08:00 Pulse 74 08/14/18 08:00 Resp 16 08/14/18 08:00 BP 137/73 08/14/18 08:00 Pulse Ox 94 L 08/14/18 08:00 Intake & Output 08/13/18 08/14/18 08/14/18 18:59 06:59 18:59 Intake Total 980.000 180 100 Output Total 900 Balance 80.000 180 100 Weight 92.4 kg Intake: IV 180 100 .9 180 Intake, IV Titration 500.000 Amount Heparin Sod,Pork in 0.45% 500.000 NaCl 25,000 unit In 0.45 % NaCl 1 500ml.bag @ 20 mls/hr IV .Q24H [facility] Rx#: [id number] Oral 480 Output: Urine 900 Other: Voiding Method Urinal Urinal - Exam GENERAL EXAM: Alert, pleasant 5-year-old white male comfortable in no apparent distress. HEAD: Normocephalic/atraumatic. EYES: Normal reaction of pupils, equal size. Conjunctiva pink, sclera white. NOSE: Clear with pink turbinates. THROAT: No erythema or exudates. NECK: No masses, no JVD, no thyroid enlargement, no adenopathy. CHEST: No chest wall deformity. Symmetrical expansion. LUNGS: Equal air entry with coarse bibasilar crackles, but no wheeze, rhonchi or dullness. CVS: Regular rate and rhythm, normal S1 and S2, no gallops, no murmurs, no rubs ABDOMEN: Soft, nontender. No hepatosplenomegaly, normal bowel sounds, no guarding or rigidity. EXTREMITIES: No clubbing, no edema, no cyanosis, 2+ pulses and upper and lower extremities. MUSCULOSKELETAL: Muscle strength and tone normal. SPINE: No scoliosis or deformity SKIN: No rashes CENTRAL NERVOUS SYSTEM: Alert and oriented -3. No focal deficits, tone is normal in all 4 extremities. PSYCHIATRIC: Alert and oriented -3. Appropriate affect. Intact judgment and insight. - Labs CBC & Chem 7: 08/14/18 06:35 08/14/18 06:35 Labs: Abnormal Lab Results - Last 24 Hours (Table) 08/13/18 08/14/18 08/14/18 Range/Units 14:23 06:35 06:35 RBC 3.80 L (4.30-5.90) m/uL Hgb 11.3 L (13.0-17.5) gm/dL Hct 34.5 L (39.0-53.0) % APTT 50.0 H (22.0-30.0) sec Chloride 109 H (98-107) mmol/L BUN 21 H (9-20) mg/dL 08/14/18 Range/Units 06:35 RBC (4.30-5.90) m/uL Hgb (13.0-17.5) gm/dL Hct (39.0-53.0) % APTT 47.1 H (22.0-30.0) sec Chloride (98-107) mmol/L BUN (9-20) mg/dL Microbiology - Last 24 Hours (Table) 08/11/18 22:49 Blood Culture - Preliminary Blood No Growth after 48 hours 08/12/18 00:47 Urine Culture - Final Urine,Voided Assessment and Plan Plan: 1 Acute hypoxic respiratory failure secondary to CHF/pulmonary edema, improved with diuretic therapy and the patient is currently on 2 L of oxygen by nasal cannula. The patient was briefly supported with BiPAP therapy and currently is on 2 L and is currently off the BiPAP. 2 chest pain with positive troponins, rule out acute non-ST elevation myocardial infarction, currently free of any chest pain. The echocardiogram showing a segmental wall motion abnormalities in based on that the patient will need further investigation with a cardiac catheterization. 3 left hilar mass, incidental finding on the CT chest. Patient is to have further workup once cleared from cardiology standpoint. Patient will likely require navigational bronchoscopy 4 acute hypertensive reaction, improved and the patient is currently off the nitroglycerin drip 5 CHF with mild impairment of the left and a ejection fraction at 40-45% along with segmental wall motion abnormalities 6 prostate cancer with previous radiation therapy 7 hypertension Plan: Continue IV diuretics, patient is breathing easier, no recurrent episodes of chest pain. Will continue to follow with cardiology. Patient will need to navigational bronchoscopy in the future for investigation of the left hilar mass. I performed a history & physical examination of the patient and discussed their management with my nurse practitioner, Sandee John. I reviewed the nurse practitioner's note and agree with the documented findings and plan of care. Lung sounds are positive for coarse bibasilar crackles. The findings and the impression was discussed with the patient. I attest to the documentation by the nurse practitioner. Time with Patient: Less than 30
[2018-08-14] MEDS ORDERED: BIVALIRUDIN BOLUS 250 MG/50 ML IV ONE (12:32)
[2018-08-14] MEDS ORDERED: BIVALIRUDIN 250 MG in SODIUM CHLORIDE 0.9% 50 ML IV ONE (12:33)
[2018-08-14] MEDS ORDERED: CLOPIDOGREL 75 MG TAB ONE (12:33)
[2018-08-14] MEDS ORDERED: NITROGLYCERIN 1000MCG/10ML SYRINGE INTRACORON ONE (12:35)
--- NOTE | 2018-08-14 12:35 | P.PN ---
Subjective Progress Note Date: 08/14/18 Principal diagnosis: shortness of breath Patient is a 68-year-old male to past medical history of prostate cancer who presented to the ER with chest complaint of difficulty in breathing. In the ER he underwent an extensive evaluation. He was noted to be in respiratory distress and had to be placed on BiPAP. His blood pressure was significantly elevated. Chest x-ray showed small pleural effusions and cardiomegaly without overt heart failure. His BNP was elevated at 2170. His troponins mildly elevated at 0.037. He was started on a nitroglycerin drip, empiric antibiotics for possible pneumonia, and was admitted to the selective care unit. Cardiology was consulted. His troponins escalated to a max of 0.2. He was started on a heparin drip and aspirin. CT of the chest was obtained which showed bilateral pleural effusions with right basilar infiltrate there was also a mass at the left pulmonary hilum suspicious for tumor. Echocardiogram was completed which showed an EF of 45-50%. He was maintained on aspirin, Lasix, lisinopril was added as well as metoprolol. Pulmonary was consulted who recommended continuing plan for cardiac catheterization prior to any evaluation of the mass. He did require BiPAP overnight on 08/12. Plan is for cardiac catheterization 08/14. Patient seen and examined at bedside. No additional chest pain, shortness of breath much improved and did not need BiPAP last night, no nausea, no vomiting. Feeling slightly anxious. and daughter present at bedside. Explained need for cardiac procedure and why the plan is for left heart catheterization. Questions answered to the best of my ability. Family will be thinking about what family physician they want him to see on discharge. Objective - Vital Signs Vital signs: Vital Signs Temp 98.4 F 08/13/18 20:00 Pulse 70 08/14/18 07:01 Resp 16 08/14/18 05:55 BP 143/74 08/14/18 05:55 Pulse Ox 94 L 08/14/18 04:00 Intake & Output 08/13/18 08/14/18 08/14/18 18:59 06:59 18:59 Intake Total 980.000 180 0 Output Total 900 Balance 80.000 180 0 Weight 92.4 kg Intake: IV 180 0 .9 180 Intake, IV Titration 500.000 Amount Heparin Sod,Pork in 0.45% 500.000 NaCl 25,000 unit In 0.45 % NaCl 1 500ml.bag @ 20 mls/hr IV .Q24H [facility] Rx#: [id number] Oral 480 Output: Urine 900 Other: Voiding Method Urinal - Exam General: non toxic, no distress, appears at stated age Derm: warm, dry Head: atraumatic, normocephalic, symmetric Eyes: EOMI, no lid lag, anicteric sclera Mouth: no lip lesion, mucus membranes moist Cardiovascular: S1S2 reg, no murmur, positive posterior tibial pulse bilateral, Lungs: CTA bilateral, no rhonchi, no rales , no accessory muscle use Abdominal: soft, nontender to palpation, no guarding, no appreciable organomegaly Ext: no gross muscle atrophy, trace edema b/l LE, no contractures Neuro: CN II-XI grossly intact, no focal neuro deficits Psych: Alert, oriented, appropriate affect - Labs CBC & Chem 7: 08/14/18 06:35 08/14/18 06:35 Labs: Abnormal Lab Results - Last 24 Hours (Table) 08/13/18 08/14/18 08/14/18 Range/Units 14:23 06:35 06:35 RBC 3.80 L (4.30-5.90) m/uL Hgb 11.3 L (13.0-17.5) gm/dL Hct 34.5 L (39.0-53.0) % APTT 50.0 H (22.0-30.0) sec Chloride 109 H (98-107) mmol/L BUN 21 H (9-20) mg/dL 08/14/18 Range/Units 06:35 RBC (4.30-5.90) m/uL Hgb (13.0-17.5) gm/dL Hct (39.0-53.0) % APTT 47.1 H (22.0-30.0) sec Chloride (98-107) mmol/L BUN (9-20) mg/dL Microbiology - Last 24 Hours (Table) 08/11/18 22:49 Blood Culture - Preliminary Blood No Growth after 48 hours 08/12/18 00:47 Urine Culture - Final Urine,Voided Assessment and Plan Assessment: Acute exacerbation of newly discovered systolic CHF, EF 40-45%, Malignant HTN -Continue with Lasix, lisinopril, metoprolol -Strict I's and O's, daily weights -Blood pressures improved -Cardiology recommendations appreciated NSTEMI -Plan is for cardiac catheterization today -Aspirin, beta víctor -LDL 91, if signs of coronary artery disease on cardiac catheterization would recommended statin therapy Acute hypoxic respiratory failure - treatment as above. Left hilar mass on CT -Pulmonary recommendations appreciated -We will need bronchoscopy Anemia -Mild acute -Suspect secondary to multiple medications -Repeat CBC in a.m. Hx of prostate cancer -Continue outpatient follow-up DVT prophylaxis: Heparin drip remains after cardiac catheterization initiate subcutaneous heparin Discussed with: Patient, patient's family Anticipated discharge: [address]: home A total of 35 minutes was spent on the care of this complex patient more than 50 % of the time was spent in counseling and care coordination.
[2018-08-14] MEDS ORDERED: CLOPIDOGREL 75 MG TAB PO ONE (12:37)
[2018-08-14] MEDS ORDERED: IOPAMIDOL-370 100ML BTL INJ ONE (12:46)
[2018-08-14] MEDS ORDERED: RX INFO: IV CONTRAST WAS GIVEN 1 EACH MISC MISCELLANE PRN (13:13)
[2018-08-14] MEDS ORDERED: MAG HYDROX/AL HYDROX/SIMETH 30 ML CUP PO PRN (13:13)
[2018-08-14] MEDS ORDERED: NITROGLYCERIN SL TABS 0.4 MG TAB SUBLINGUAL PRN (13:13)
[2018-08-14] MEDS ORDERED: ATROPINE SULFATE 0.1 MG/ML 10ML SYRINGE IV PRN (13:13)
[2018-08-14] MEDS ORDERED: ZOLPIDEM 5 MG TAB PO PRN (13:13)
[2018-08-14] MEDS ORDERED: SODIUM CHLORIDE 0.9% 1,000 ML IV SCH (13:15)
[2018-08-14 14:32] VITALS: BMI 29.2
--- NOTE | 2018-08-14 15:29 | PTCA ---
PERCUTANEOUSTRANS CORORONARY ANGIOGRAPHY DATE OF SERVICE: 08/12/2018 PERFORMING PHYSICIAN: Clarence Fernandez MD, Acquisitions Analyst. PROCEDURE PERFORMED: Successful stenting of the mid RCA using 3.5 x 15 mm Vision Bare Metal stent with good angiographic results and reduction of stenosis from 90% to 0%. INDICATION: This is a very pleasant 68-year-old gentleman who was experiencing chest discomfort and underwent heart catheterization by Dr. Lacy and was found to have severe disease involving the mid RCA. A percutaneous coronary intervention was advised. APPROACH: Right common femoral artery. LEVEL OF SEDATION: Moderate with sedation length of 40 minutes. PROCEDURE DESCRIPTION: After diagnostic heart catheterization was performed by Dr. Lacy and after reviewing the angiogram, we decided to pursue with intervention on the RCA. Anticoagulation was initiated using Angiomax. Subsequently, I did engage the RCA using a JR4 guide. A whisper wire was used to wire it. Subsequently, I did balloon angioplasty using 3.0 x 12 mm balloon before I deployed a 3.5 x 15 mm Xience EDWIN where the stent was positioned under fluoroscopy guidance and deployed under 18 atmospheres for 20 seconds. The following angiogram showed good angiographic results and the procedure was completed without any complication. POSTPROCEDURE MANAGEMENT: 1. Dual anti-platelet therapy. 2. Risk factor modifications. 3. Follow up with the patient. MMODL / IJN: [id number] /
[2018-08-14] MEDS: FUROSEMIDE 10 MG/ML 4 ML VIAL IV SCH (21:30)
[2018-08-14] MEDS: TAMSULOSIN 0.4 MG CAP.ER.24H PO SCH (21:44)
[2018-08-14] MEDS: HEPARIN SOD,PORK IN 0.45% NACL 25,000 UNIT in 0.45% NACL 1 500ML.BAG IV SCH (21:59)
[2018-08-15 00:51] VITALS: RESP 18
[2018-08-15 07:58] LABS: Anion Gap 7 mmol/L; Basophils % (A) 0 %; Blood Urea Nitrogen 20 mg/dL (9-20); Calcium 8.7 mg/dL (8.4-10.2); Carbon Dioxide 27 mmol/L (22-30); Chloride 110 mmol/L (98-107); Eosinophils # (A) 0.3 k/uL (0-0.7); Eosinophils % (A) 4 %; Glucose 101 mg/dL (74-99); HCT 35.8 % (39.0-53.0); Lymphocytes # (A) 0.9 k/uL (1.0-4.8); Lymphocytes % (A) 13 %; MCH 30.1 pg (25.0-35.0); MCHC 33.6 g/dL (31.0-37.0); MCV 89.7 fL (80.0-100.0); Mean Platelet Volume 7.5; Monocytes # (A) 0.4 k/uL (0-1.0); Monocytes % (A) 6 %; Neutrophils # (A) 4.9 k/uL (1.3-7.7); Neutrophils % (A) 76 %; Platelet Count 208 k/uL (150-450); Potassium 4.1 mmol/L (3.5-5.1); RBC 3.99 m/uL (4.30-5.90); RDW 13.4 % (11.5-15.5); Sodium 144 mmol/L (137-145); WBC 6.4 k/uL (3.8-10.6)
[2018-08-15] MEDS: IPRATROPIUM-ALBUTEROL 3 ML NEB INHALATION SCH ×2 (07:58→11:51)
[2018-08-15] MEDS: LISINOPRIL 2.5 MG TAB PO SCH (08:15)
[2018-08-15] MEDS: ASPIRIN 325 MG TAB PO SCH (08:15)
[2018-08-15] MEDS: METOPROLOL SUCCINATE (ER) 25 MG TAB.ER.24H PO SCH (08:15)
[2018-08-15] MEDS: FUROSEMIDE 10 MG/ML 4 ML VIAL IV SCH (08:15)
[2018-08-15 08:28] VITALS: TEMP 97.8
[2018-08-15] MEDS ORDERED: CLOPIDOGREL 75 MG TAB PO SCH (09:00)
--- NOTE | 2018-08-15 10:28 | P.PN ---
Subjective Progress Note Date: 08/15/18 Principal diagnosis: Acute hypoxic respiratory failure secondary to CHF/pulmonary edema, chest pain, rule out acute non-ST elevated PR A 68-year-old male patient presented emergency department because of worsening shortness of breath. The is at the bedside and she tells that he is essentially all negative and he does not presented to the hospital unless something major is happening to him. The patient admits that he was getting progressively more short of breath and he got to the point where he was unable to lay down flat and he was able to breathe better upon sitting or standing up. No pleurisy. No hemoptysis. No fever or chills. The patient was having on and off chest pain over the anterior chest without any radiation. No radiation to the back or neck. CAT scan of the chest was done and showed small bilateral pleural effusions. The patient was placed initially on a BiPAP to assist with the breathing and currently is off the BiPAP. He was off her diuretic therapy and the patient improved and this morning he is much less short of breath on 2 L of oxygen by nasal cannula. His proBNP level was above 2000. Troponins were minimally elevated there were positive. The patient was started on nitroglycerin drip to control the blood pressure in the chest pain. The patient was given empiric antibiotic coverage. The patient was started on IV Lasix. EKG showed sinus tachycardia. This morning is much more comfortable. No previous bouts of pneumonia. Most of COPD. No history of recurrent pneumonias. No other complaints otherwise. He is known to have prostate cancer status post radiation therapy to his prostate cancer. On 08/13/2018 patient seen in follow-up on selective care unit. He required BiPAP support last night, breathing easier, though he still has some difficulty breathing when laying down. Currently on 2 L per nasal cannula his pulse ox is 97%, he is afebrile, hemodynamically stable, lung sounds are positive for coarse bilateral lower bases crackles. He is diuresing, he is in -1300 mL fluid balance, his weight is down by 1.6 kg. He is on IV Lasix 40 mg once daily , remains on heparin. Has not had any recurrence of chest pain.He is scheduled for heart catheterization tomorrow. On 08/14/2018 patient seen in follow-up on selective care unit. No recurrent episodes of chest pain, or shortness of breath, currently on room air, did not require BiPAP support last night, breathing easier, lung sounds are still positive for coarse crackles at bilateral bases, he is afebrile. Patient is scheduled for cardiac catheterization today. Today's labs were noted. He is on IV Lasix at 40 mg once daily. Heparin drip continues. On 08/15/2018 patient seen in follow-up on selective care unit. He underwent heart catheterization yesterday, and successful stenting of the mid RCA the vision bare metal stent and reduction of stenosis from 90% to 0. No chest pain , no shortness of breath, currently on 2 L per nasal cannula, his pulse ox 98%, afebrile, lung sounds are clear, diminished at the bases. Diuretics have been transitioned to oral. Patient has been tolerating ambulation, no acute complaints, anticipate discharge home today, and follow-up in the pulmonary office in 2-3 weeks. Objective - Vital Signs Vital signs: Vital Signs Temp 97.8 F 08/15/18 08:00 Pulse 88 08/15/18 08:11 Resp 18 08/15/18 08:00 BP 138/70 08/15/18 08:00 Pulse Ox 98 08/15/18 08:00 Intake & Output 08/14/18 08/15/18 08/15/18 18:59 06:59 18:59 Intake Total 400 10 Output Total 0 Balance 400 10 Weight 92.4 kg 92.2 kg Intake: IV 280 10 .9 10 Oral 120 Output: Urine 0 Other: Voiding Method Urinal Toilet Toilet Urinal Urinal # Voids 2 - Exam GENERAL EXAM: Alert, pleasant 5-year-old white male comfortable in no apparent distress. HEAD: Normocephalic/atraumatic. EYES: Normal reaction of pupils, equal size. Conjunctiva pink, sclera white. NOSE: Clear with pink turbinates. THROAT: No erythema or exudates. NECK: No masses, no JVD, no thyroid enlargement, no adenopathy. CHEST: No chest wall deformity. Symmetrical expansion. LUNGS: Equal air entry with diminished breath sounds at the bases, but no wheeze , rhonchi or dullness. CVS: Regular rate and rhythm, normal S1 and S2, no gallops, no murmurs, no rubs ABDOMEN: Soft, nontender. No hepatosplenomegaly, normal bowel sounds, no guarding or rigidity. EXTREMITIES: No clubbing, no edema, no cyanosis, 2+ pulses and upper and lower extremities. MUSCULOSKELETAL: Muscle strength and tone normal. SPINE: No scoliosis or deformity SKIN: No rashes CENTRAL NERVOUS SYSTEM: Alert and oriented -3. No focal deficits, tone is normal in all 4 extremities. PSYCHIATRIC: Alert and oriented -3. Appropriate affect. Intact judgment and insight. - Labs CBC & Chem 7: 08/15/18 06:58 08/15/18 06:58 Labs: Abnormal Lab Results - Last 24 Hours (Table) 08/15/18 08/15/18 Range/Units 06:58 06:58 RBC 3.99 L (4.30-5.90) m/uL Hgb 12.0 L (13.0-17.5) gm/dL Hct 35.8 L (39.0-53.0) % Lymphocytes # 0.9 L (1.0-4.8) k/uL Chloride 110 H (98-107) mmol/L Glucose 101 H (74-99) mg/dL Microbiology - Last 24 Hours (Table) 08/11/18 22:49 Blood Culture - Preliminary Blood No Growth after 72 hours Assessment and Plan Plan: 1 Acute hypoxic respiratory failure secondary to CHF/pulmonary edema, improved with diuretic therapy and the patient is currently on 2 L of oxygen by nasal cannula. The patient was briefly supported with BiPAP therapy and currently is on 2 L and is currently off the BiPAP. 2 chest pain with positive troponins, rule out acute non-ST elevation myocardial infarction, currently free of any chest pain. The echocardiogram showing a segmental wall motion abnormalities 3 Coronary artery disease, status post PTCA and stenting with a vision bare- metal stent her RCA lesion 90% down to 0. 3 left hilar mass, incidental finding on the CT chest. Patient is to have further workup once cleared from cardiology standpoint. Patient will likely require navigational bronchoscopy 4 acute hypertensive reaction, improved and the patient is currently off the nitroglycerin drip 5 CHF with mild impairment of the left and a ejection fraction at 40-45% along with segmental wall motion abnormalities 6 prostate cancer with previous radiation therapy 7 hypertension Plan: Patient denies any chest pain, or shortness of breath. Vital signs remain stable, he has been started on dual antiplatelet therapy with aspirin and Plavix. Patient has been diuresed, breathing easier. Lung sounds are clear. Patient will need follow-up in the office with Dr. Joiner in 2-3 weeks regarding the workup of the left hilar mass discovered CTA chest. I performed a history & physical examination of the patient and discussed their management with my nurse practitioner, Sandee John. I reviewed the nurse practitioner's note and agree with the documented findings and plan of care. Lung sounds are positive clear lung sounds. The findings and the impression was discussed with the patient. I attest to the documentation by the nurse practitioner. Time with Patient: Less than 30
--- NOTE | 2018-08-15 14:10 | P.PN ---
Subjective Progress Note Date: 08/15/18 This is a 68-year-old gentleman with history of cancer of the prostate he presented to the hospital with progressively worsening shortness of breath of 2 weeks duration. Troponins were noted to be mildly elevated, he was seen in consultation by Dr. Lacy. Patient underwent a cardiac catheterization yesterday with subsequent angioplasty and stenting of the right coronary artery. Blood pressure this morning 138/70 with a heart rate in the 70s, 98% on 2 L of oxygen. EKG showed normal sinus rhythm with no changes from post- PCI. White blood cell count 6.4, hemoglobin 12.0, platelet count 208. Sodium 144, potassium 4.1, BUN 20, creatinine 0.8. Patient was seen and examined this morning, denied any chest pain, breathing overall is stable. Objective - Vital Signs Vital signs: Vital Signs Temp 97.8 F 08/15/18 08:00 Pulse 77 08/15/18 12:01 Resp 18 08/15/18 12:00 BP 138/70 08/15/18 08:00 Pulse Ox 98 08/15/18 08:00 Intake & Output 08/14/18 08/15/18 08/15/18 18:59 06:59 18:59 Intake Total 400 10 Output Total 0 Balance 400 10 Weight 92.4 kg 92.2 kg Intake: IV 280 10 .9 10 Oral 120 Output: Urine 0 Other: Voiding Method Urinal Toilet Toilet Urinal Urinal # Voids 2 - Exam PHYSICAL EXAMINATION: GENERAL: 68-year-old gentleman in no acute distress at the time of my examination HEENT: Head is atraumatic, normocephalic. Pupils equal, round. Sclera anicteric. Conjunctiva are clear. Mucous membranes of the mouth are moist. Neck is supple. There is no elevated jugular venous pressure. No carotid bruit is heard. HEART EXAMINATION: Heart S1, S2 normal. No murmur or gallop heard. CHEST EXAMINATION: Lungs are clear to auscultation and precussion. No chest wall tenderness is noted on palpation or with deep breathing. ABDOMEN: Soft, nontender. Bowel sounds are heard. No organomegaly noted. EXTREMITIES: 2+ peripheral pulses with no evidence of peripheral edema and no calf tenderness noted. Right groin soft, no evidence of any hematoma. NEUROLOGIC patient is awake, alert and oriented X3. . - Labs CBC & Chem 7: 08/15/18 06:58 08/15/18 06:58 Labs: Abnormal Lab Results - Last 24 Hours (Table) 08/15/18 08/15/18 Range/Units 06:58 06:58 RBC 3.99 L (4.30-5.90) m/uL Hgb 12.0 L (13.0-17.5) gm/dL Hct 35.8 L (39.0-53.0) % Lymphocytes # 0.9 L (1.0-4.8) k/uL Chloride 110 H (98-107) mmol/L Glucose 101 H (74-99) mg/dL Microbiology - Last 24 Hours (Table) 08/11/18 22:49 Blood Culture - Preliminary Blood No Growth after 72 hours Assessment and Plan Plan: Assessment and plan #1 non-Q-wave myocardial infarction status post angioplasty and stenting of the RCA #2 acute hypoxic respiratory failure, secondary to systolic congestive heart failure acute on chronic #3 coronary artery disease with prior PCI #4 acute hypertensive urgency #5 hyperlipidemia Plan From cardiology's perspective, patient may be able to be discharged home today. We'll make him a follow-up appointment to see Dr. Lacy in the office post discharge. Discharge medications include aspirin 81 mg daily, Lipitor 80 mg daily, Plavix 75 mg daily, Lasix 40 mg daily, lisinopril 2.5 mg daily, metoprolol 25 mg daily, and sublingual nitroglycerin as needed for chest pain. DNP note has been reviewed, I agree with a documented findings and plan of care. Patient was seen and examined.
--- NOTE | 2018-08-15 14:27 | P.DS ---
Providers Date of admission: 08/12/18 01:10 Expected date of discharge: 08/15/18 Attending physician: Bud Hart MD Consults: 08/12/18 01:11 Consult Physician Routine Consulting Provider: Clarence Fernandez Consult Reason/Comments: new onset chf Do you want consulting provider notified?: Yes 08/12/18 01:43 Consult Physician Routine Consulting Provider: Soledad Joiner Consult Reason/Comments: Acute respiratory failure with hypoxia Do you want consulting provider notified?: Yes, Notify in am 08/14/18 13:13 Consult Physician Routine Consulting Provider: [facility] Consult Reason/Comments: Post Interventional patient Do you want consulting provider notified?: Already Contacted Primary care physician: Stated None Hospital Course: Discharge Diagnosis: Acute exacerbation of newly discovered systolic congestive heart failure with ejection fraction 40-45% Hypertensive urgency with malignant hypertension Acute Non-ST segment elevated myocardial infarction Atherosclerotic coronary artery disease status post stent to the RCA Acute hypoxic respiratory failure in Left hilar mass on CT Anemia History of prostate cancer Hospital Course: Patient is a 68-year-old male to past medical history of prostate cancer who presented to the ER with chest complaint of difficulty in breathing. In the ER he underwent an extensive evaluation. He was noted to be in respiratory distress and had to be placed on BiPAP. His blood pressure was significantly elevated. Chest x-ray showed small pleural effusions and cardiomegaly without overt heart failure. His BNP was elevated at 2170. His troponins mildly elevated at 0.037. He was started on a nitroglycerin drip, empiric antibiotics for possible pneumonia, and was admitted to the selective care unit. Cardiology was consulted. His troponins escalated to a max of 0.2. He was started on a heparin drip and aspirin. CT of the chest was obtained which showed bilateral pleural effusions with right basilar infiltrate there was also a mass at the left pulmonary hilum suspicious for tumor. Echocardiogram was completed which showed an EF of 45-50%. He was maintained on aspirin, Lasix, lisinopril was added as well as metoprolol. Pulmonary was consulted who recommended continuing plan for cardiac catheterization prior to any evaluation of the mass, they do plan on doing a bronchoscopy with possible biopsy once cleared from cardiology. He did require BiPAP overnight on 08/12 however after this is able to sleep laying flat at night without the use of BiPAP. His breathing improved greatly with gentle diuresis. He underwent cardiac catheterization on 08/14 and ultimately had a bare metal stent placed to his right coronary artery. He was started on Plavix. Lipid profile showed a total cholesterol 154 and an LDL of 91 without statin therapy use. Was recommended that he continue on Lipitor 40 mg daily. He was seen by cardiology and cleared for discharge. Restrictions were sent to [facility]. He plans on following with Dr. Barrett as his primary care physician. He will also follow Dr. Joiner in 3 weeks to set up a date and time for bronchoscopy. He will follow-up with Dr. Lacy on August 22 at 9:30 AM. The patient on the morning of discharge all questions answered. Reiterated the importance of taking his medications regularly and seeing a primary care physician. Patient seen and examined at bedside. No chest pain, shortness breath, nausea, or vomiting. Slept well last night. Anxious to go home. Understands the importance of follow-up. Vital signs reviewed and stable. General: non toxic, no distress, appears at stated age Derm: warm, dry Head: atraumatic, normocephalic, symmetric Eyes: EOMI, no lid lag, anicteric sclera Mouth: no lip lesion, mucus membranes moist Cardiovascular: S1S2 reg, no murmur, positive posterior tibial pulse bilateral, Lungs: CTA bilateral, no rhonchi, no rales , no accessory muscle use Abdominal: soft, nontender to palpation, no guarding, no appreciable organomegaly Ext: no gross muscle atrophy, no edema, no contractures Neuro: CN II-XI grossly intact, no focal neuro deficits Psych: Alert, oriented, appropriate affect A total of 40 minutes of time were spent preparing this complex discharge summary . Pertinent Studies: Echocardiogram-ejection fraction 40-45%, global hypokinesis CTA chest-no PE, bilateral pleural effusions, mass effect the left pulmonary hilum 3.5 cm Procedures: Cardiac catheterization 08/14-blockage in the right RCA with bare metal stent placed Patient Condition at Discharge: Fair Plan - Discharge Summary Discharge Rx Participant: No New Discharge Prescriptions: New Aspirin 81 mg PO DAILY #30 chew Atorvastatin [Lipitor] 40 mg PO HS #30 tablet Clopidogrel [Plavix] 75 mg PO DAILY #30 tab Furosemide [Lasix] 40 mg PO DAILY #30 tab Lisinopril [Zestril] 5 mg PO DAILY #30 tab Metoprolol Succinate (ER) [Toprol XL] 25 mg PO DAILY #30 tablet Continue Loperamide HCl [Imodium A-D] 2 mg PO ONCE PRN PRN Reason: Diarrhea Tamsulosin [Flomax] 0.4 mg PO HS 30 Days #30 tab Discharge Medication List Loperamide HCl [Imodium A-D] 2 mg PO ONCE PRN 08/11/18 [History] Aspirin 81 mg PO DAILY #30 chew 08/15/18 [Rx] Atorvastatin [Lipitor] 40 mg PO HS #30 tablet 08/15/18 [Rx] Clopidogrel [Plavix] 75 mg PO DAILY #30 tab 08/15/18 [Rx] Furosemide [Lasix] 40 mg PO DAILY #30 tab 08/15/18 [Rx] Lisinopril [Zestril] 5 mg PO DAILY #30 tab 08/15/18 [Rx] Metoprolol Succinate (ER) [Toprol XL] 25 mg PO DAILY #30 tablet 08/15/18 [Rx] Tamsulosin [Flomax] 0.4 mg PO HS 30 Days #30 tab 08/15/18 [Rx] Follow up Appointment(s)/Referral(s): Zehra Barrett DO [REFERRING] - 08/18/18 10:00 am (TUESDAY) Srikanth Lacy MD [STAFF PHYSICIAN] - 08/22/18 9:30 am (TUESDAY) Soledad Joiner MD [STAFF PHYSICIAN] - 3 Weeks Patient Instructions/Handouts: *[facility] - After Heart Catheterization - [employer] Instructions, Heart Failure (DC), Left Heart Catheterization (DC ) Activity/Diet/Wound Care/Special Instructions: Heart healthy diet Activity as tolerated Discharge Disposition: HOME SELF-CARE
[2018-08-15 14:35] VITALS: BP 157/78; PULSE 70
[2018-08-15] MEDS ORDERED: ATORVASTATIN 80 MG TAB PO SCH (21:00)
[2018-08-16] MEDS ORDERED: FUROSEMIDE 40 MG TAB PO SCH (09:00)
[2018-08-16] MEDS ORDERED: ASPIRIN 81 MG PO SCH (09:00)
== END 2018-08-15 15:06 | disposition home or self-care (01) | DRG 248 ==
LOC: EC 22:41 → 6SEL 08-12 01:10
PROVIDERS: ADMIT Family Medicine; ATTEND Family Medicine
PROC: 5A09357 Assistance with Respiratory Ventilation, Less than 24 Consecutive Hours, Continuous Positive Airway Pressure (ICD-10-PCS; 2018-08-12)
PROC: 4A023N7 Measurement of Cardiac Sampling and Pressure, Left Heart, Percutaneous Approach (ICD-10-PCS; 2018-08-14)
PROC: B2111ZZ Fluoroscopy of Multiple Coronary Arteries using Low Osmolar Contrast (ICD-10-PCS; 2018-08-14)
PROC: 02703DZ Dilation of Coronary Artery, One Artery with Intraluminal Device, Percutaneous Approach (ICD-10-PCS; principal; 2018-08-14 10:00)
DX: I21.4 Non-ST elevation (NSTEMI) myocardial infarction (principal); I50.23 Acute on chronic systolic (congestive) heart failure; J96.01 Acute respiratory failure with hypoxia; I16.1 Hypertensive emergency; D64.9 Anemia, unspecified; E78.5 Hyperlipidemia, unspecified; I11.0 Hypertensive heart disease with heart failure; I25.10 Atherosclerotic heart disease of native coronary artery without angina pectoris; J44.9 Chronic obstructive pulmonary disease, unspecified; Z79.899 Other long term (current) drug therapy; Z82.49 Family history of ischemic heart disease and other diseases of the circulatory system; Z85.46 Personal history of malignant neoplasm of prostate; Z87.891 Personal history of nicotine dependence; Z92.21 Personal history of antineoplastic chemotherapy; Z92.3 Personal history of irradiation; R91.8 Other nonspecific abnormal finding of lung field; R19.7 Diarrhea, unspecified
CPT/HCPCS: 36415; 71045; 71275; 80048; 80053; 80061; 81001; 82550; 82553; 83605; 83880; 84443; 84484; 85025; 85027; 85379; 85610; 85730; 87040; 87086; 93005; 93306; 93458; 94640; 94660; 94760; 96365; 96366; 96367; 96368; 99285

== ENCOUNTER → 2018-08-26 | Outpatient (CLI) | payer MEDICARE ==
--- NOTE | 2018-08-27 21:54 | PE ---
EXAMINATION TYPE: PET CT fusion whole body DATE OF EXAM: 08/26/2018 CLINICAL HISTORY: 68-year-old male initial staging left lung mass. Patient with history of prostate c ancer in 2017 treated with radiation therapy. TECHNIQUE: Following the intravenous administration of 12.1 mCi of F-18 FDG, whole body images are performed from the skull vertex through the feet. Images are reviewed on the computer in the coronal, axial, and sagittal planes. Reconstructed rotating images are created on independent workstation an d reviewed on the computer. A localization and attenuation correction CT is performed in conjunctio n with the PET scan. Glucose level: 96 mg/dL CTDI: 4.35 & 1.59 mGy DLP: 437.91 & 138.98 mGy-cm COMPARISON: CT chest 08/12/[address] abdomen pelvis 04/25/2017. FINDINGS: PET: Questionable focal area of hypodensity in the left frontotemporal parietal junction, axial image 26. Windowing and leveling on the PET images reveals no definite suspicious hypermetabolism here. Contras t-enhanced CT or MRI is to further evaluate. No midline shift or hydrocephalus. Redemonstrated left infrahilar mass within the superior segment left lower lobe measuring 3.5 cm. Thi s shows only mild uptake, max SUV 2.1. No additional suspicious pulmonary nodule or mass. Continued moderate right pleural effusion and a trace left pleural effusion. No associated hypermetab olism. Adjacent atelectasis on the right. Average liver SUV 2.4. Variable mild to borderline moderate bowel uptake, max SUV 3.5 likely physiologic. Some focal nodular soft tissue stranding in the right paramedian mid abdominal subcutaneous adipose l rosmery shows mild uptake of 2.1 suggesting subcutaneous injections. There is also moderate increased FDG uptake along the dorsal aspect of the penile skin thickening or lytic clinically to exclude cellulitis. No abnormal hypermetabolism within the bilateral lower extremities. ATTENUATION CORRECTION CT: Rightward nasal septal deviation. Mild mucosal thickening floor of the right maxillary sinus. Mastoid air cells well pneumatized. No cervical lymphadenopathy. Heart mildly enlarged with trace pericardial fluid. Coronary vessel calcifications are present. Ascen ding aorta borderline aneurysmal at 4.0 cm. Upper descending thoracic aorta also aneurysmal at 3.6 cm . Mild to moderate at this cardiac arch calcifications and conventional arch vessel branching anatomy . Scattered nonenlarged mediastinal lymph nodes are demonstrated measuring up to 8 mm. The lymph node seen on the patient's 08/12/2018 CT are not as well-demonstrated on this noncontrast attenuation andrew ection study. Mild centrilobular emphysema. Moderate atherosclerotic calcifications continued throughout the abdominal aorta and iliac arteries. No dilated small bowel, free fluid, or free air. No mesenteric or retroperitoneal lymphadenopathy. M ild scattered stool burden. No pericolonic inflammatory change. Redundant sigmoid colon. Circumferential bladder wall thickening. Prostatomegaly at 5.5 cm wide. Mild pelvic free fluid is dem onstrated of uncertain etiology. No pelvic lymphadenopathy. Moderate bilateral hydroceles are demonst rated. Degenerative changes at the SI joints and lower lumbar spine. Endplate spondylosis lower thoracic spi ne. Cervical spondylosis. IMPRESSION: 1. The 3.5 cm left infrahilar mass located within the superior segment left lower lobe shows minimal uptake, max SUV 2.1. This suggests either a benign etiology or an indolent neoplasm such as a low-gra de carcinoma or carcinoid tumor. Three-month follow-up CT and/or consideration to biopsy recommended. 2. Continued moderate right and trace left pleural effusions. 3. Questionable focal area of hypodensity in the left cerebral hemisphere. Manipulation of the PET im ages shows no definite abnormal hypermetabolism in this region. Contrast-enhanced CT or MRI of the br ain is recommended to further evaluate. 4. Some increased cutaneous uptake along the dorsal aspect of the penis. Correlate to exclude celluli tis. 5. Incidental: Borderline aneurysmal thoracic aorta (ascending 4.0 cm). COPD with mild emphysema. Non specific mild pelvic free fluid. Moderate bilateral hydroceles. Circumferential bladder wall thickeni ng could represent cystitis, chronic bladder wall hypertrophy, or posttreatment change relating to ra diation therapy for the patient's known prostate cancer.
== END | disposition home or self-care (01) ==
LOC: RADPETMAIN 12:17
PROVIDERS: ATTEND Internal Medicine Critical Care Medicine
DX: R91.8 Other nonspecific abnormal finding of lung field (principal); J90 Pleural effusion, not elsewhere classified
CPT/HCPCS: 78816; A9552

== ENCOUNTER 2018-09-22 07:37 | Day surgery (SDC) | payer MEDICARE ==
[2018-09-21 14:15] VITALS: BMI 28.5
[~2018-09-22 07:37] MED LIST: LACTATED RINGERS 1,000 ML IV ONE; LACTATED RINGERS 1,000 ML IV SCH; LIDOCAINE 1% 20 ML VIAL (10MG/ML) FOR IV START INTRADERMA PRN; LIDOCAINE VISCOUS 300 MG/15 ML CUP MUCOUS MEM ONE
[2018-09-22] MEDS: LIDOCAINE 2% (PF) 20 MG/ML 2 ML AMP INHALATION ONE ×2 (08:29→08:40)
[2018-09-22] MEDS: ALBUTEROL NEB (CONC) 2.5 MG/0.5 ML INHALATION ONE ×2 (08:29→08:39)
--- NOTE | 2018-09-22 09:54 | CT ---
EXAMINATION TYPE: CT Chest wo con [facility] Protocol DATE OF EXAM: 09/22/2018 COMPARISON: 08/12/2018 HISTORY: Pre-procedure bronchoscopy (Veran). Known lung mass CT DLP: [address] of the chest was performed with lung and mediastinal window settings submitted. The la ck of contrast limits evaluation of the vascular, mediastinal and parenchymal structures including th e upper abdomen. LUNGS: Left hilar mass noted measuring 4 cm in greatest dimension. No additional nodules or masses id entified. Moderate right-sided pleural effusion noted. MEDIASTINUM/JILLIAN: Thoracic aorta is of normal caliber with limited evaluation given lack of contrast . The heart is not enlarged. No evidence for mediastinal mass. Left hilar adenopathy. Subcarinal a denopathy noted. UPPER ABDOMEN: No significant abnormality is seen. OTHER: No significant other abnormality. IMPRESSION: 1. Left hilar mass with left hilar adenopathy and mediastinal adenopathy.
[2018-09-22] MEDS ORDERED: DEXAMETHASONE SOD PHOS (MDV) 100 MG/10 ML VIAL IV ONE (10:07)
[2018-09-22] MEDS ORDERED: ONDANSETRON 4 MG/2 ML VIAL IVP ONE (10:08)
[2018-09-22] MEDS ORDERED: GLYCOPYRROLATE 0.2 MG/ML 2 ML VIAL ONE (11:03)
[2018-09-22] MEDS ORDERED: LIDOCAINE 1% INJ 10MG/ML (20 ML MDV) ONE (11:03)
[2018-09-22] MEDS ORDERED: PROPOFOL 10 MG/ML 20 ML VIAL IV ONE (11:03)
[2018-09-22] MEDS ORDERED: fentaNYL (PF) 50 MCG/ML 2 ML AMP ONE (11:03)
[2018-09-22] MEDS ORDERED: MIDAZOLAM 2 MG/2 ML VIAL ONE (11:03)
[2018-09-22] MEDS ORDERED: SUCCINYLCHOLINE CHLORIDE 100 MG/5 ML SYR IV ONE (11:03)
[2018-09-22] MEDS ORDERED: ePHEDrine SULFATE/0.9% NACL/PF 50 MG/5 ML SYRINGE IV ONE (11:03)
[2018-09-22] MEDS ORDERED: ROCURONIUM BROMIDE 10 MG/ML 10 ML VIAL IV ONE (11:03)
[2018-09-22] MEDS ORDERED: NEOSTIGMINE 1 MG/ML 10 ML VIAL ONE (11:03)
[2018-09-22] MEDS ORDERED: LACTATED RINGERS 600 ML IV ONE (11:45)
--- NOTE | 2018-09-22 11:49 | P.PCN ---
Date of Procedure: 09/22/18 Preoperative Diagnosis: left lower lobe mass Postoperative Diagnosis: Left lower lobe mass Procedure(s) Performed: Navigational bronchoscopy, Flexible bronchoscopy, transbronchial biopsy, transbronchial brushings, bronchoalveolar lavage, transbronchial needle aspirate. Anesthesia: ERENDIRAA Surgeon: Soledad Joiner Finger Waver #1: Coretta Juan Estimated Blood Loss (ml): 5 Pathology: other Condition: stable Disposition: same day Operative Findings: This procedure was done in the operating room. This is a navigational bronchoscopy. The patient initially presented to the CAT scan department where he underwent a CAT scan imaging for planning purposes. The V pads were applied to his chest and following that the CAT scan images were uploaded into the [facility] navigational bronchoscopy system. There images were reviewed. The target lesion in the left lower lobe was marked and the exact route to the left lower lobe lesion was mapped. Following that, the patient was brought to the operating room and under the care of anesthesia, the patient was induced, intubated and placed on mechanical ventilator. The patient was intubated by an orotracheal tube #8. Following that, the flexible bronchoscope was introduced with orotracheal tube and it was advanced into the lower trachea. The tip of the orotracheal tube was seen around 2 cm above the lili. A quick airway inspection was done. Examination of the distal trachea, main lili, right mainstem bronchus, right upper lobe bronchus, bronchus intermedius, right middle lobe bronchus and right lower lobe bronchus was done and all of these airways were patent within normal limits. The bronchoscope was then moved to the left side. Examination of the left mainstem bronchus was within normal limits. Secondary lili the left upper lobe and the left lower lobe was noted. At the level of the superior segment of the left lower lobe, there was some mass effect and narrowing of the endobronchial segments. There was no active bleeding. No other endobronchial tumor was noted. Nevertheless, it was felt that the mass was causing some degree of mass effect and narrowing of the orifice of the superior segment of the left lower lobe. The various segments of the left lower lobe were all patent within normal limits. A brief evaluation of the left lower lobe including the lingular segment was within normal limits. At this point in time, using navigational guidance, the appropriate calibration was done and then the bronchoscope was then directed to the left lower lobe, and under navigational guidance, multiple TBBX biopsies of the left lower lobe mass was obtained. The lesion was biopsied without any major difficulties with absolute accuracy. Based on the navigational system, the forceps was seen within the target lesion. Multiple transbronchial biopsies were obtained. Following that TBNA of the left lower lobe lesion was done. Endobronchial brushing of the left lower lobe mass was also done. Finally, at the completion of the procedure, bronchioloalveolar lavage of the left lower lobe, where the involved segment was infused with a total of 80 mL of fluid was infused and 20 mL of bloody aspirate was obtained. At the end of the procedure, therapeutic it was suctioning was done. Bronchoscope was removed. The patient will be extubated under the care of anesthesia and following that he was transferred to recovery. We'll obtain a chest x-ray to rule out pneumothorax. Following that the patient will be monitored in the recovery room and discharged home once cleared by anesthesia. The patient was seen back in the office in a week and to discuss results of the biopsy.
[2018-09-22 12:12] VITALS: TEMP 97
--- NOTE | 2018-09-22 12:19 | XR ---
EXAMINATION TYPE: XR chest 1V DATE OF EXAM: 09/22/2018 COMPARISON: 08/11/2018 HISTORY: Shortness of breath TECHNIQUE: Single frontal view of the chest is obtained. FINDINGS: There is a prominence of the hilum with a left-sided pulmonary mass stable in appearance. Underlying COPD suspected with right lower lobe consolidation and small effusion. Correlate for chron ic interstitial lung disease or venous congestion. Findings are stable. The heart is enlarged. IMPRESSION: 1. Stable right-sided consolidation and pleural effusion. 2. Stable hilar and left upper lobe lung mass. 3. Correlate for mild central venous congestion.
[2018-09-22 13:10] VITALS: BP 143/68; PULSE 65; RESP 16
[2018-09-22 15:36] LABS: Appearance,BF Cloudy; Color,BF Red
[2018-09-22 16:14] LABS: Nucleated Cells, Body Fluid 0 /uL; RBC, Body Fluid 75400 /uL
== END 2018-09-22 13:25 | disposition home or self-care (01) ==
LOC: ORWHC2ENDO 07:37
PROVIDERS: ATTEND Internal Medicine Critical Care Medicine
DX: C7A.090 Malignant carcinoid tumor of the bronchus and lung (principal); J90 Pleural effusion, not elsewhere classified; R59.0 Localized enlarged lymph nodes; J44.9 Chronic obstructive pulmonary disease, unspecified; I11.0 Hypertensive heart disease with heart failure; I50.20 Unspecified systolic (congestive) heart failure; I25.10 Atherosclerotic heart disease of native coronary artery without angina pectoris; E78.5 Hyperlipidemia, unspecified; D64.9 Anemia, unspecified; I25.2 Old myocardial infarction; Z85.46 Personal history of malignant neoplasm of prostate; Z92.3 Personal history of irradiation; Z87.891 Personal history of nicotine dependence; Z95.5 Presence of coronary angioplasty implant and graft; Z79.02 Long term (current) use of antithrombotics/antiplatelets; Z79.82 Long term (current) use of aspirin; Z79.899 Other long term (current) drug therapy
CPT/HCPCS: 94640; 88104; 88108; 88305; 89050; 88313; 88342; 88341; 87070; 87205; 71045; 71250; 31628; 31629; 31623; 31624; 31627; J2250; J2710; J2405; J2001 ×2; J3010; J1100; J0330; J2704; 31625; 31633

== ENCOUNTER → 2018-10-12 | Outpatient (CLI) | payer MEDICARE ==
[2018-10-12 13:26] LABS: Basophils % (A) 1 %; Eosinophils # (A) 0.3 k/uL (0-0.7); Eosinophils % (A) 5 %; HCT 35.7 % (39.0-53.0); HGB 11.6 gm/dL (13.0-17.5); Hypochromasia Slight; Lymphocytes # (A) 0.8 k/uL (1.0-4.8); Lymphocytes % (A) 15 %; MCH 28.8 pg (25.0-35.0); MCHC 32.5 g/dL (31.0-37.0); MCV 88.5 fL (80.0-100.0); Mean Platelet Volume 6.7; Monocytes # (A) 0.3 k/uL (0-1.0); Monocytes % (A) 5 %; Neutrophils # (A) 3.8 k/uL (1.3-7.7); Neutrophils % (A) 72 %; Platelet Count 300 k/uL (150-450); RBC 4.03 m/uL (4.30-5.90); RDW 13.3 % (11.5-15.5); WBC 5.3 k/uL (3.8-10.6)
[2018-10-12 13:33] LABS: INR 0.9 (<1.2); Partial Thromboplastin Time 26.6 sec (22.0-30.0); Prothrombin Time 10.2 sec (9.0-12.0)
[2018-10-12 13:36] LABS: Anion Gap 7 mmol/L; Blood Urea Nitrogen 20 mg/dL (9-20); Carbon Dioxide 28 mmol/L (22-30); Chloride 107 mmol/L (98-107); Potassium 4.4 mmol/L (3.5-5.1); Sodium 142 mmol/L (137-145)
[2018-10-12 13:59] LABS: Appearance,Urine Cloudy (Clear); Bilirubin,Urine Negative (Negative); Blood,Urine Negative (Negative); Calcium Oxalate Crystals,Urine Occasional /hpf; Color,Urine Yellow; Glucose,Urine (UA) Negative (Negative); Ketones,Urine Negative (Negative); Leukocyte Esterase,Urine Negative (Negative); Mucus,Urine Many /hpf; Nitrite,Urine Negative (Negative); PH, Urine 5.5 (5.0-8.0); Protein,Urine 1+ (Negative); Specific Gravity,Urine 1.027 (1.001-1.035); WBC,Urine 2 /hpf (0-5)
--- NOTE | 2018-10-12 17:16 | XR ---
EXAMINATION TYPE: XR chest 2V DATE OF EXAM: 10/12/2018 COMPARISON: 09/22/2018 HISTORY: 68-year-old male presurgical evaluation left lung TECHNIQUE: Frontal and lateral views FINDINGS: Continued small right pleural effusion. Right basilar opacity has otherwise improved. Mild diffuse in terstitial prominence is improved from the patient's prior. Known left perihilar mass is redemonstrat ed. IMPRESSION: Known left perihilar mass. Continued small right pleural effusion. The adjacent atelectasis and/or co nsolidation shows improvement.
== END | disposition home or self-care (01) ==
LOC: RADXRMAIN 12:27
PROVIDERS: ATTEND Thoracic Surgery (Cardiothoracic Vascular Surgery)
DX: Z01.818 Encounter for other preprocedural examination (principal); Z01.812 Encounter for preprocedural laboratory examination; R91.8 Other nonspecific abnormal finding of lung field; J90 Pleural effusion, not elsewhere classified
CPT/HCPCS: 71046; 80051; 81001; 82565; 84520; 85025; 85610; 85730

== ENCOUNTER 2018-10-19 05:26 | Inpatient (IN) | payer MEDICARE ==
[2018-10-16 15:24] VITALS: BMI 28.0
[~2018-10-19 05:26] MED LIST changes: -LACTATED RINGERS 1,000 ML IV ONE; -LACTATED RINGERS 1,000 ML IV SCH; -LIDOCAINE 1% 20 ML VIAL (10MG/ML) FOR IV START INTRADERMA PRN; -LIDOCAINE VISCOUS 300 MG/15 ML CUP MUCOUS MEM ONE; +ceFAZolin IN SWFI 2 GM/20 ML SYRINGE IVP ONE
[2018-10-19] MEDS ORDERED: DEXAMETHASONE SOD PHOSPHATE 10 MG/ML 1 ML VIAL IV ONE (05:41)
[2018-10-19] MEDS ORDERED: LIDOCAINE 1% 20 ML VIAL (10MG/ML) FOR IV START INTRADERMA PRN (05:41)
[2018-10-19] MEDS ORDERED: ONDANSETRON 4 MG/2 ML VIAL IVP ONE (05:41)
[2018-10-19] MEDS ORDERED: MIDAZOLAM 2 MG/2 ML VIAL IV PRN (05:41)
[2018-10-19] MEDS ORDERED: SCOPOLAMINE 1.5MG/72HR PATCH TRANSDERM ONE (05:41)
[2018-10-19] MEDS ORDERED: HYDROmorphone 1 MG/ML 1 ML SYRINGE IVP PRN (05:41)
[2018-10-19] MEDS ORDERED: LACTATED RINGERS 1,000 ML IV SCH (05:41)
[2018-10-19] MEDS ORDERED: fentaNYL (PF) 50 MCG/ML 2 ML AMP ONE (07:33)
[2018-10-19] MEDS ORDERED: ePHEDrine SULFATE/0.9% NACL/PF 50 MG/5 ML SYRINGE IV ONE (07:33)
[2018-10-19] MEDS ORDERED: PROPOFOL 10 MG/ML 20 ML VIAL IV ONE (07:33)
[2018-10-19] MEDS ORDERED: NEOSTIGMINE 1 MG/ML 10 ML VIAL ONE (07:33)
[2018-10-19] MEDS ORDERED: SUCCINYLCHOLINE CHLORIDE 100 MG/5 ML SYR IV ONE (07:33)
[2018-10-19] MEDS ORDERED: ROCURONIUM BROMIDE 10 MG/ML 10 ML VIAL IV ONE (07:33)
[2018-10-19] MEDS ORDERED: GLYCOPYRROLATE 0.2 MG/ML 2 ML VIAL ONE (07:33)
[2018-10-19] MEDS ORDERED: PHENYLEPHRINE-0.9% NACL SYG 1 MG/10 ML SYRINGE ONE (07:33)
[2018-10-19] MEDS ORDERED: MIDAZOLAM 2 MG/2 ML VIAL ONE (07:33)
[2018-10-19] MEDS ORDERED: LIDOCAINE 1% INJ 10MG/ML (20 ML MDV) ONE (07:33)
[2018-10-19] MEDS ORDERED: BUPIVACAINE (PF) 0.25% 30 ML VIAL SQ ONE ×2 (08:47)
[2018-10-19] MEDS ORDERED: LACTATED RINGERS 1,000 ML IV ONE (09:37)
[2018-10-19] MEDS ORDERED: IPRATROPIUM-ALBUTEROL 3 ML NEB IH PRN (11:16)
[2018-10-19] MEDS ORDERED: ONDANSETRON 4 MG/2 ML VIAL IVP PRN (11:16)
[2018-10-19] MEDS ORDERED: DEXTROSE 5%-0.45% NACL 1,000 ML IV SCH (11:30)
[2018-10-19] MEDS ORDERED: LOPERAMIDE 2 MG CAP PO PRN (11:45)
[2018-10-19] MEDS: KETOROLAC 30 MG/ML 1 ML VIAL IVP SCH ×2 (12:52→18:31)
[2018-10-19] MEDS: traMADol 50 MG TAB PO SCH ×3 (12:52→23:35)
[2018-10-19 13:23] LABS: Glucose,Whole Blood 117 mg/dL (75-99)
--- NOTE | 2018-10-19 13:29 | XR ---
EXAMINATION TYPE: XR chest 1V portable DATE OF EXAM: 10/19/2018 COMPARISON: 10/12/2018 INDICATION: Left pneumonectomy TECHNIQUE: Single frontal view of the chest is obtained. FINDINGS: The heart size is upper limits of normal. The pulmonary vasculature is normal. There is a right-sided chest tube present. No pneumothorax is evident on the right. There is been a left pneumonectomy. Air fills the residual airspace of the left hemithorax. IMPRESSION: 1. No right-sided pneumothorax. Right-sided chest tube remains in position. 2. Mild cardiomegaly. 3. Status post left pneumonectomy.
--- NOTE | 2018-10-19 15:09 | OP ---
OPERATIVE REPORT DATE OF OPERATION: 10/19/2018 DATE OF DICTATION: 10/19/2018 PREOPERATIVE DIAGNOSES: 1. Carcinoma left lower lobe of lung. 2. Right pleural effusion. POSTOPERATIVE DIAGNOSES: 1. Carcinoma left lower lobe of lung. 2. Right pleural effusion. OPERATIVE PROCEDURE: Right chest tube placement, left robotic-assisted thoracoscopic pneumonectomy with mediastinal lymph node dissection. SURGEON: Dr. Channing Villa. CITY SANITARIAN: LOIS Anna ANESTHESIA: General endotracheal by Dr. Sheffield. INDICATION: Patient is a 68-year-old male presents with a large central left lower lobe tumor. PET scan was negative for metastasis. Pulmonary functions were good. Patient does have a recent history of myocardial infarction and some degree of heart failure. He has a right pleural effusion secondary to this. He has been cleared to stop his Plavix and therefore we decided to proceed with right chest tube placement for drainage of the pleural effusion, followed by left thoracoscopic robotic-assisted lower lobectomy. OPERATIVE PROCEDURE: Patient was electively admitted to the hospital, brought to the operating room, anesthetized and intubated. A double-lumen endotracheal tube was placed and positioned with fiberoptic bronchoscopy ans secured. No endobronchial lesions were noted. The right chest anterolaterally was sterilely prepped and draped. A 1 cm incision was made over the sixth interspace and dissection was carried posteriorly, pleural space was entered and clear serous fluid was identified. A 28-Cambodian chest tube was threaded into the right pleural space posteriorly and connected to a Pleur-Evac. A total of 700 mL of serous fluid was drained. Chest tube was secured with 0-Ethibond suture and a dry sterile dressing was applied. Patient was turned to the right lateral decubitus position and the left chest sterilely prepped and draped. Patient was appropriately positioned for thoracoscopic lobectomy. Additional incision was made in the anterior axillary line in the ninth interspace. An 8 mm thoracoscopic port was placed here and the video thoracoscope was placed through it. The chest cavity was explored. The fissures were incomplete. The remaining ports were placed, 12 mm ports were placed both anterior and posterior to the initial port and a second 8 mm port was placed in the fifth interspace posteriorly. A working port was placed between the initial camera port and the more posterior 12 mm port. This was placed at the level of the diaphragm. The robot was docked. A thoracic grasper was placed through this superior posterior port to act as a retractor and a bipolar device was placed on the right hand and the metal storage worker a grasper on the left hand. The inferior pulmonary ligament was taken down with bipolar electrocautery, dissection was carried posteriorly. The post in the inferiorpulmonary vein was identified as was the left mainstem bronchus. Level 7 lymph nodes were dissected out. Dissection was continued superiorly and the level 6 lymph nodes were dissected out. Pulmonary artery branches leading to the superior segment of the lower lobe were identified. There was some mild hilar adenopathy here. The dissection was difficult and there was some oozing and it was decided to leave this until later. Attention was directed anteriorly and the anterior portion of the inferior pulmonary vein was dissected out. The inferior pulmonary vein was encircled and ligated and divided with a robotic thin stapler. Dissection was carried up onto the bronchus. Upper and lower lobe branches were identified and the lower lobe branch was encircled and divided with the robotic stapler. The green thick stapler was used for this. This revealed that pulmonary artery branches leading to the lower lobe were identified. The main trunk to the lower lobe was encircled and divided with a robotic thin stapler and then the superior segmental branch was separately divided. Lymph nodes from the L10 station had been separately taken. We now completed the fissure with multiple firings with the robotic medium thick stapler. The lower lobe was placed in an EndoCatch bag and retracted down into the inferior portion of the chest. We now inflated the upper lobe. The upper lobe did not inflate well, was partially trapped by the staple line and was relatively small to begin with. It was felt that it was going to be more problematic to leave this in place that to take it and so we did a completion pneumonectomy with several firings of the robotic stapler. At that point scrubbed out. The robot was undocked. The working port incision was enlarged and the lower lobe specimen was removed through the EndoCatch bag. A second EndoCatch bag was placed in the chest and the small upper lobe was likewise removed. The chest was now irrigated and checked for hemostasis. A 18 red rubber catheter was placed inferiorly. Rib blocks were performed with the levels of the incision. Incisions were closed with layers of Vicryl suture. The patient was turned supine, and air was aspirated from the red rubber catheter in order to maximize inflation of the right lung. On completion of this, the red rubber was removed and the site was glued. Dressings were applied to all of the sites. Patient was extubated and transferred to recovery in stable condition. CLARE / ALMA: [id number] / MTDD
[2018-10-19] MEDS: IPRATROPIUM-ALBUTEROL 3 ML NEB IH SCH ×3 (15:17→19:19)
[2018-10-19] MEDS: ceFAZolin IN SWFI 2 GM/20 ML SYRINGE IVP SCH (15:32)
[2018-10-19] MEDS: HEPARIN SODIUM,PORCINE 5,000 UNIT/ML 1 ML VIAL SQ SCH (15:32)
--- NOTE | 2018-10-19 17:18 | P.CNPUL ---
History of Present Illness Consult date: 10/19/18 Reason for consult: other (Status post left-sided pneumonectomy) Chief complaint: Recently diagnosed carcinoid involving the left lower lobe History of present illness: This is a 68-year-old white male recently diagnosed as having carcinoid involving the left lower lobe. Patient presented to our office, and he was seen by Dr. Joiner for a left lower lobe mass which was incidentally discovered when he presented in August with acute myocardial infarction requiring cardiac catheterization and right coronary artery angioplasty stenting was performed. His echocardiogram at that time showed mild-to- moderate LV dysfunction, and mild to moderate aortic insufficiency. Patient had full workup for his left lower lobe mass, it was 3 cm in size, involving the left lower lobe centrally and it was biopsy-proven to be carcinoid. PET scan was negative. Patient was also noted to have chronic right-sided pleural effusion for some time felt to be cardiac related. Today the patient underwent elective pneumonectomy, placement of a right-sided chest tube, and his postoperative course was relatively uneventful. Patient was extubated in the recovery room, transferred to the ICU on nasal cannula, patient is in no form of distress. He is basically asymptomatic. Denies any cough no wheezing no shortness of breath, denies any chest pain. Chest x-ray showed postoperative changes on the left side, and a right sided chest tube. No evidence of pleural effusion. Patient denies any headache, no blurred vision, no dizziness. Denies any chest pain, no palpitations, no nausea no vomiting no abdominal pain no melena no hematemesis is no dysuria and no frequency no urgency. Patient is known to have history of prostate cancer, underwent previous radiation. Baseline PFT in the office showed FEV1 2.4, 71% of the predicted value. Review of Systems 14 point review of systems were obtained, please refer to pertinent positives and negatives in HPI. Past Medical History Past Medical History: Cancer, Hyperlipidemia, Hypertension, Myocardial Infarction (CT), Prostate Disorder Additional Past Medical History / Comment(s): Prostate cancer radiation therapy 2017 (44 treatments), "spot on my lung". SOB. Last Myocardial Infarction Date:: 08/14/2018 History of Any Multi-Drug Resistant Organisms: None Reported Past Surgical History: Heart Catheterization With Stent Additional Past Surgical History / Comment(s): One cardiac stent. Past Anesthesia/Blood Transfusion Reactions: No Reported Reaction Date of Last Stent Placement:: 08/16/18 Additional Past Alcohol Use History / Comment(s): smoked for 42 yrs, quit smoking in 2007, 1 PPD - Past Family History Father Family Medical History: Coronary Artery Disease (CAD) Mother Family Medical History: Cancer Additional Family Medical History / Comment(s): Breast Cancer Medications and Allergies Home Medications Medication Instructions Recorded Confirmed Type Loperamide HCl [Imodium A-D] 2 mg PO DAILY PRN 08/11/18 10/19/18 History Aspirin 81 mg PO DAILY #30 chew 08/15/18 10/19/18 Rx Atorvastatin [Lipitor] 40 mg PO HS #30 tablet 08/15/18 10/19/18 Rx Clopidogrel [Plavix] 75 mg PO DAILY #30 tab 08/15/18 10/19/18 Rx Furosemide [Lasix] 40 mg PO DAILY #30 tab 08/15/18 10/19/18 Rx Tamsulosin [Flomax] 0.4 mg PO HS 30 Days #30 tab 08/15/18 10/19/18 Rx Lisinopril [Zestril] 5 mg PO QAM 10/16/18 10/19/18 History Metoprolol Succinate (ER) [Toprol 25 mg PO QAM 10/16/18 10/19/18 History XL] Allergies Allergy/AdvReac Type Severity Reaction Status Date / Time No Known Allergies Allergy Verified 10/19/18 13:14 Physical Exam Vitals: Vital Signs Temp Pulse Pulse Resp BP BP BP 10/19/18 16:00 98.6 F 67 20 146/66 10/19/18 15:34 67 10/19/18 15:22 67 10/19/18 15:00 65 22 158/69 10/19/18 14:45 62 16 10/19/18 14:30 63 10 L 155/73 10/19/18 14:15 64 13 10/19/18 14:00 64 13 155/81 10/19/18 13:45 65 17 145/64 10/19/18 13:30 64 26 H 147/72 10/19/18 13:15 67 27 H 145/71 10/19/18 13:00 98.1 F 71 21 151/80 10/19/18 12:45 10/19/18 12:44 10/19/18 12:15 72 12 162/74 10/19/18 12:00 73 12 164/77 10/19/18 11:45 72 12 156/72 10/19/18 11:30 71 12 158/70 10/19/18 11:15 97 F L 77 12 145/69 10/19/18 06:30 97.1 F L 72 18 143/69 156/73 Pulse Ox 10/19/18 16:00 97 10/19/18 15:34 10/19/18 15:22 99 10/19/18 15:00 99 10/19/18 14:45 99 10/19/18 14:30 99 10/19/18 14:15 99 10/19/18 14:00 99 10/19/18 13:45 100 10/19/18 13:30 100 10/19/18 13:15 100 10/19/18 13:00 98 10/19/18 12:45 99 10/19/18 12:44 100 10/19/18 12:15 99 10/19/18 12:00 99 10/19/18 11:45 99 10/19/18 11:30 99 10/19/18 11:15 97 10/19/18 06:30 96 Intake and Output 10/19/18 10/19/18 10/19/18 06:59 14:59 22:59 Intake Total 400 2000 Output Total 1225 175 Balance 400 775 -175 Intake: IV 400 2000 Output: Drainage 850 Right Chest 850 Urine 325 175 Uretheral (Dumont) 175 Estimated Blood Loss 50 Other: Voiding Method Indwelling Catheter Indwelling Catheter Physical Exam: Revealed a 68-year-old white male in no distress. Very pleasant. Head: Atraumatic, normocephalic. HEENT:[Neck is supple.] [No neck masses.] [No thyromegaly.] [No JVD.] Chest: [Clear breath sounds on the right side, right-sided chest tube is noted, diminished breath sounds on the left side.] Cardiac Exam: [Normal S1 and S2, no S3 gallop, no murmur.] Abdomen: [Soft, nontender, no megaly, no rebound, no guarding, normal bowel sounds.] Extremities: [No clubbing, no edema, no cyanosis.] Neurological Exam: [No focal neurologic deficit.] Psychiatric: Normal mood, affect and mental status examination. Skin: No rashes. Results - Laboratory Findings Abnormal lab findings: Abnormal Labs 10/19/18 13:19 POC Glucose (mg/dL) 117 H - Diagnostic Findings Chest x-ray: image reviewed (As noted in HPI.) Assessment and Plan Assessment: Impression: 1 status post left-sided pneumonectomy for 3 cm central left lower lobe carcinoid tumor. Postoperative day #0. 2 status post right chest tube placement for chronic right-sided pleural effusion. 3 remote history of tobacco use. 4 coronary artery disease, previous stenting of the RCA. 5. Hypercholesterolemia 6 history of prostate cancer 7 history of benign essential hypertension. Recommendation: Continue present treatment plan, continue incentive spirometry, close cardiac monitoring, resume cardiac meds, continue bronchodilators, will follow. Patient will be placed on GI and DVT prophylaxis. Discussed his condition with him and with his family whom I have known for a number of years. Time with Patient: Greater than 30
[2018-10-19] MEDS: ATORVASTATIN 40 MG TAB PO SCH (23:35)
[2018-10-19] MEDS: TAMSULOSIN 0.4 MG CAP.ER.24H PO SCH (23:36)
[2018-10-20] MEDS: KETOROLAC 30 MG/ML 1 ML VIAL IVP SCH ×5 (01:38→22:54)
[2018-10-20] MEDS: ceFAZolin IN SWFI 2 GM/20 ML SYRINGE IVP SCH (01:39)
[2018-10-20] MEDS: HEPARIN SODIUM,PORCINE 5,000 UNIT/ML 1 ML VIAL SQ SCH ×4 (01:39→22:49)
[2018-10-20] MEDS: LISINOPRIL 5 MG TAB PO SCH (07:49)
[2018-10-20] MEDS: METOPROLOL SUCCINATE (ER) 25 MG TAB.ER.24H PO SCH (07:49)
[2018-10-20] MEDS: CLOPIDOGREL 75 MG TAB PO SCH (07:49)
[2018-10-20] MEDS: ASPIRIN 81 MG PO SCH (07:50)
[2018-10-20] MEDS: FUROSEMIDE 40 MG TAB PO SCH (07:50)
[2018-10-20] MEDS: traMADol 50 MG TAB PO SCH ×4 (07:50→22:48)
[2018-10-20] MEDS: IPRATROPIUM-ALBUTEROL 3 ML NEB IH SCH ×4 (07:52→21:03)
[2018-10-20 08:23] LABS: Anion Gap 6 mmol/L; Blood Urea Nitrogen 20 mg/dL (9-20); Calcium 8.4 mg/dL (8.4-10.2); Carbon Dioxide 29 mmol/L (22-30); Chloride 105 mmol/L (98-107); Glucose 93 mg/dL (74-99); Potassium 3.8 mmol/L (3.5-5.1); Sodium 140 mmol/L (137-145)
[2018-10-20 08:27] LABS: Basophils % (A) 0 %; Eosinophils # (A) 0.1 k/uL (0-0.7); Eosinophils % (A) 2 %; HCT 29.8 % (39.0-53.0); Hypochromasia Slight; Lymphocytes # (A) 0.8 k/uL (1.0-4.8); Lymphocytes % (A) 11 %; MCH 28.7 pg (25.0-35.0); MCHC 32.5 g/dL (31.0-37.0); MCV 88.1 fL (80.0-100.0); Mean Platelet Volume 7.6; Monocytes # (A) 0.4 k/uL (0-1.0); Monocytes % (A) 5 %; Neutrophils # (A) 6.2 k/uL (1.3-7.7); Neutrophils % (A) 81 %; Platelet Count 217 k/uL (150-450); RBC 3.38 m/uL (4.30-5.90); RDW 13.8 % (11.5-15.5); WBC 7.7 k/uL (3.8-10.6)
[2018-10-20 08:33] LABS: HGB 9.7 gm/dL (13.0-17.5)
[2018-10-20] MEDS ORDERED: Potassium Replacement Protocol 1 EACH MISC MISCELLANE PRN (09:08)
[2018-10-20] MEDS ORDERED: POTASSIUM CHLORIDE ER 20 MEQ TAB.ER PO SCH (10:00)
--- NOTE | 2018-10-20 10:38 | XR ---
EXAMINATION TYPE: XR chest 1V DATE OF EXAM: 10/20/2018 COMPARISON: Prior chest 10/19/2018 HISTORY: Postpneumonectomy TECHNIQUE: Single frontal view of the chest is obtained. FINDINGS: Increasing fluid present within the left hemithorax. Right-sided chest tube remains in jihan ce, there are overlying cardiac leads. No evident pneumothorax. Aorta is dense. Heart size is likely stable. IMPRESSION: Postpneumonectomy change.
--- NOTE | 2018-10-20 10:45 | P.PN ---
Subjective Progress Note Date: 10/20/18 Principal diagnosis: Carcinoma left lower lobe of the lung. Right pleural effusion. Previous medical history of moderate COPD with preoperative FEV1 68% of predicted, prostate cancer status post radiation, recent myocardial infarction with stent placement to the right coronary artery in August 2018, chronic systolic heart failure with ejection fraction 40-45% with moderate mitral regurgitation and mild to moderate aortic insufficiency, hypertension, hyperlipidemia. POD #1 right chest tube placement, left robotic assisted thoracoscopic pneumonectomy with mediastinal lymph node dissection. Patient's currently sitting up in bed in no acute distress. Does complain of pain at his chest tube site and lateral wall incision but states pain is controlled on current medication regimen. Denies shortness of breath. No new complaints. Has been ambulating without difficulty. Objective - Vital Signs Vital signs: Vital Signs Temp 98.1 F 10/20/18 08:00 Pulse 71 10/20/18 08:00 Resp 19 10/20/18 08:00 BP 144/74 10/20/18 08:00 Pulse Ox 99 10/20/18 08:00 Intake & Output 10/19/18 10/20/18 10/20/18 18:59 06:59 18:59 Intake Total 2000 Output Total 1400 550 200 Balance 600 -550 -200 Weight 87.8 kg Intake: IV 2000 Output: Drainage 850 Right Chest 850 Urine 500 550 200 Uretheral (Dumont) 175 Estimated Blood Loss 50 Other: Voiding Method Indwelling Catheter Indwelling Catheter - Constitutional General appearance: Present: cooperative, no acute distress - Respiratory Details: Lungs sounds diminished on the left. Respirations even, nonlabored. Currently on 1 L nasal cannula with oxygen saturation 97%, was trialed on room air and oxygen saturation dipped down into the high 80s. Able to achieve 500 mL on his incentive spirometry. Right pleural chest tube to waterseal with 20 mL output since the end the surgery yesterday. No air leaks present. - Cardiovascular Details: S1, S2 present. Regular rate and rhythm, sinus rhythm on telemetry. Palpable peripheral pulses bilaterally. No edema present. No calf pain or tenderness noted. SCDs present. - Gastrointestinal Gastrointestinal Comment(s): Abdomen soft, nontender, nondistended. Active bowel sounds present 4 quadrants. Tolerating diet. - Genitourinary Genitourinary Comment(s): Dumont was present last night draining clear, yellow urine. Output 350 mL overnight. - Integumentary Integumentary Comment(s): Skin is warm and dry with evidence of good perfusion. Left lateral chest incision well approximated and covered with dry intact dressing. - Neurologic Neurologic: Present: CNII-XII intact - Musculoskeletal Musculoskeletal: Present: gait normal, strength equal bilaterally - Psychiatric Psychiatric: Present: A&O x's 3, appropriate affect, intact judgment & insight - Allied health notes Allied health notes reviewed: nursing - Labs CBC & Chem 7: 10/20/18 06:04 10/20/18 06:04 Labs: Abnormal Lab Results - Last 24 Hours (Table) 10/19/18 10/20/18 Range/Units 13:19 06:04 RBC 3.38 L (4.30-5.90) m/uL Hgb 9.7 L D (13.0-17.5) gm/dL Hct 29.8 L (39.0-53.0) % Lymphocytes # 0.8 L (1.0-4.8) k/uL POC Glucose (mg/dL) 117 H (75-99) mg/dL - Imaging and Cardiology Chest x-ray: report reviewed, image reviewed Assessment and Plan (1) Previous myocardial infarction older than 8 weeks Current Visit: No Status: Resolved Code(s): I25.2 - OLD MYOCARDIAL INFARCTION SNOMED Code(s): 1881285 (2) H/O heart artery stent Current Visit: Yes Status: Chronic Code(s): Z95.5 - PRESENCE OF CORONARY ANGIOPLASTY IMPLANT AND GRAFT SNOMED Code(s): 141576238 (3) Hypertension Current Visit: Yes Status: Chronic Code(s): I10 - ESSENTIAL (PRIMARY) HYPERTENSION SNOMED Code(s): 18077846 (4) Hyperlipidemia Current Visit: Yes Status: Chronic Code(s): E78.5 - HYPERLIPIDEMIA, UNSPECIFIED SNOMED Code(s): 00374059 (5) COPD (chronic obstructive pulmonary disease) Current Visit: Yes Status: Chronic Code(s): J44.9 - CHRONIC OBSTRUCTIVE PULMONARY DISEASE, UNSPECIFIED SNOMED Code(s): 73880438 (6) History of prostate cancer Current Visit: No Status: Resolved Code(s): Z85.46 - PERSONAL HISTORY OF MALIGNANT NEOPLASM OF PROSTATE SNOMED Code(s): 147931677 (7) Mass of lower lobe of left lung Current Visit: Yes Status: Chronic Code(s): R91.8 - OTHER NONSPECIFIC ABNORMAL FINDING OF LUNG FIELD SNOMED Code(s): 756681723 Plan: 1. Right pleural chest tube discontinued without incident. 2. Will monitor chest x-ray in the morning. 3. Wean O2 as tolerated. Patient may need to go home on oxygen for a short time period. 4. Encourage incentive spirometry use 10 times every hour while awake. 5. Increase activity, ambulate in the hallway. 6. Pain controlled current medication regimen. 7. If repeat chest x-ray in the morning is stable we will likely discharge to home tomorrow. 8. More recommendations to follow. Time with Patient: Greater than 30
--- NOTE | 2018-10-20 12:39 | P.PN ---
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 This is a 68-year-old white male recently diagnosed as having carcinoid involving the left lower lobe. Patient presented to our office, and he was seen by Dr. Joiner for a left lower lobe mass which was incidentally discovered when he presented in August with acute myocardial infarction requiring cardiac catheterization and right coronary artery angioplasty stenting was performed. His echocardiogram at that time showed mild-to- moderate LV dysfunction, and mild to moderate aortic insufficiency. Patient had full workup for his left lower lobe mass, it was 3 cm in size, involving the left lower lobe centrally and it was biopsy-proven to be carcinoid. PET scan was negative. Patient was also noted to have chronic right-sided pleural effusion for some time felt to be cardiac related. Today the patient underwent elective pneumonectomy, placement of a right-sided chest tube, and his postoperative course was relatively uneventful. Patient was extubated in the recovery room, transferred to the ICU on nasal cannula, patient is in no form of distress. He is basically asymptomatic. Denies any cough no wheezing no shortness of breath, denies any chest pain. Chest x-ray showed postoperative changes on the left side, and a right sided chest tube. No evidence of pleural effusion. Patient denies any headache, no blurred vision, no dizziness. Denies any chest pain, no palpitations, no nausea no vomiting no abdominal pain no melena no hematemesis is no dysuria and no frequency no urgency. Patient is known to have history of prostate cancer, underwent previous radiation. Baseline PFT in the office showed FEV1 2.4, 71% of the predicted value. Patient is seen today 10/20/2018 in follow-up in the intensive care unit. This is postoperative day #1 following a left pneumonectomy secondary to carcinoid and right-sided chest tube placement secondary to pleural effusion. Chest x- ray reviewed. Chest tube was removed today. He is seen in the intensive care unit as a selective care unit overflow. He is currently awake and alert in no acute distress. He is maintaining good O2 saturations in the low 90s on room air. He is working well with the incentive spirometer. He's been afebrile. Hemodynamically stable. White count 7.7. Hemoglobin 9.7. Creatinine 0.88. Objective - Vital Signs Vital signs: Vital Signs Temp 98.1 F 10/20/18 08:00 Pulse 76 10/20/18 12:00 Resp 19 10/20/18 08:00 BP 144/74 10/20/18 08:00 Pulse Ox 99 10/20/18 08:00 Intake & Output 10/19/18 10/20/18 10/20/18 18:59 06:59 18:59 Intake Total 2000 Output Total 1400 550 430 Balance 600 -550 -430 Weight 87.8 kg Intake: IV 2000 Output: Chest Tube Drainage 30 Pleural Catheter Right 30 Drainage 850 Right Chest 850 Urine 500 550 400 Uretheral (Dumont) 175 200 Estimated Blood Loss 50 Other: Voiding Method Indwelling Catheter Indwelling Catheter - Exam GENERAL EXAM: Alert, fairly comfortable in no apparent distress. On room air. HEAD: Normocephalic. EYES: Normal reaction of pupils, equal size. NOSE: Clear with pink turbinates. THROAT: No erythema or exudates. NECK: No masses, no JVD. CHEST: No chest wall deformity. LUNGS: Rhonchi in the right chest diminished on the left. CVS: S1 and S2 normal with no audible murmur, regular rhythm. ABDOMEN: No hepatosplenomegaly, normal bowel sounds, no guarding or rigidity. SPINE: No scoliosis or deformity SKIN: No rashes CENTRAL NERVOUS SYSTEM: No focal deficits, tone is normal in all 4 extremities. EXTREMITIES: There is no peripheral edema. No clubbing, no cyanosis. Peripheral pulses are intact. - Labs CBC & Chem 7: 10/20/18 06:04 10/20/18 06:04 Labs: Abnormal Lab Results - Last 24 Hours (Table) 10/19/18 10/20/18 Range/Units 13:19 06:04 RBC 3.38 L (4.30-5.90) m/uL Hgb 9.7 L D (13.0-17.5) gm/dL Hct 29.8 L (39.0-53.0) % Lymphocytes # 0.8 L (1.0-4.8) k/uL POC Glucose (mg/dL) 117 H (75-99) mg/dL Assessment and Plan Assessment: Impression: 1 status post left-sided pneumonectomy for 3 cm central left lower lobe carcinoid tumor. Postoperative day #1. 2 status post right chest tube placement for chronic right-sided pleural effusion. 3 remote history of tobacco use. 4 coronary artery disease, previous stenting of the RCA. 5. hypercholesterolemia 6 history of prostate cancer 7 history of benign essential hypertension. Plan: The patient was seen and evaluated by Dr. Gann. Chest x-ray was reviewed. Right-sided chest tube to be removed today. He is again encouraged regarding the increased use the incentive spirometer and cough and deep breathing exercises. Continue bronchodilators. Increase his activity as tolerated. We' ll continue to follow make further recommendations based on his clinical status. I, the cosigning physician, performed a history & physical examination of the patient. Lungs sounds with rhonchi in the right, diminished on the left. Maintaining good O2 saturations in the 90s on room air. I discussed the assessment and plan of care with my nurse practitioner, Coretta Juan. I attest to the above note as dictated by her.
[2018-10-20] MEDS: ATORVASTATIN 40 MG TAB PO SCH (20:37)
[2018-10-20] MEDS: TAMSULOSIN 0.4 MG CAP.ER.24H PO SCH (20:37)
[2018-10-21] MEDS: KETOROLAC 30 MG/ML 1 ML VIAL IVP SCH ×4 (02:26→19:49)
[2018-10-21 06:11] VITALS: RESP 18
--- NOTE | 2018-10-21 06:34 | XR ---
EXAMINATION TYPE: XR chest 2V DATE OF EXAM: 10/21/2018 HISTORY: post pneumonectomy. REFERENCE: Previous study dated 10/20/2018. FINDINGS: There has been a left-sided pneumonectomy. The pneumonectomy space demonstrates an air-flui d level which is normal postoperatively. The right lung is clear. The heart is enlarged. There are sc attered air-fluid levels within the pneumonectomy space. IMPRESSION: 1. INCREASING EFFUSION IN THE LEFT PNEUMONECTOMY SPACE. 2. SCATTERED AIR-FLUID LEVELS WITHIN THE PNEUMONECTOMY MAY REPRESENT LOCULATION OF THE FLUID. UNDERLY ING INFECTION IS NOT ENTIRELY EXCLUDED.
[2018-10-21] MEDS: IPRATROPIUM-ALBUTEROL 3 ML NEB IH SCH ×4 (09:00→20:25)
[2018-10-21] MEDS: FUROSEMIDE 40 MG TAB PO SCH (09:53)
[2018-10-21] MEDS: LISINOPRIL 5 MG TAB PO SCH (09:53)
[2018-10-21] MEDS: METOPROLOL SUCCINATE (ER) 25 MG TAB.ER.24H PO SCH (09:53)
[2018-10-21] MEDS: traMADol 50 MG TAB PO SCH ×4 (09:53→22:32)
[2018-10-21] MEDS: ASPIRIN 81 MG PO SCH (09:53)
[2018-10-21] MEDS: CLOPIDOGREL 75 MG TAB PO SCH (09:53)
[2018-10-21] MEDS: HEPARIN SODIUM,PORCINE 5,000 UNIT/ML 1 ML VIAL SQ SCH ×2 (10:12→17:28)
--- NOTE | 2018-10-21 14:09 | P.DS ---
Providers Date of admission: 10/19/18 05:26 Expected date of discharge: 10/21/18 Attending physician: Channing Villa Consults: 10/19/18 11:16 Consult Physician Routine Consulting Provider: Soledad Joiner Consult Reason/Comments: post left pneumonectomy, known to you Do you want consulting provider notified?: Yes Primary care physician: Nika Vincent - Discharge Diagnosis(es) (1) Previous myocardial infarction older than 8 weeks Current Visit: No Status: Resolved (2) H/O heart artery stent Current Visit: Yes Status: Chronic (3) Hypertension Current Visit: Yes Status: Chronic (4) Hyperlipidemia Current Visit: Yes Status: Chronic (5) COPD (chronic obstructive pulmonary disease) Current Visit: Yes Status: Chronic (6) History of prostate cancer Current Visit: No Status: Resolved (7) Mass of lower lobe of left lung Current Visit: Yes Status: Chronic Hospital Course: FINAL DIAGNOSIS: 1. Carcinoma left lower lobe of the lung 2. Right pleural effusion 3. Moderate COPD with preoperative FEV1 60% of predicted 4. History of prostate cancer status post radiation 5. Recent myocardial infarction with stent placement to the right coronary artery in August 2018 6. Chronic systolic heart failure with ejection fraction 4045% with moderate mitral regurgitation and mild to moderate aortic insufficiency 7. Hypertension 8. Hyperlipidemia 9. Urinary retention PRINCIPAL PROCEDURE: 1. Right chest tube placement 2. Left robotic-assisted thoracoscopic pneumonectomy with mediastinal lymph node dissection HISTORY OF PRESENT ILLNESS: This is a 68-year-old active gentleman who follows with Dr. Vincent on an outpatient basis. He was recently diagnosed with a mass in the left lung after presenting to [facility] in August with acute myocardial cardial infarction and cardiac catheterization demonstrating tight stenosis in the right coronary artery with angioplasty and stenting performed. In addition he had transthoracic echocardiography demonstrating EF 40-45% with moderate mitral regurgitation and mild to moderate aortic insufficiency. After finishing his course of Plavix he underwent workup for the left lower lobe mass. There was a 3 cm mass in the left lower lobe centrally, biopsy-proven carcinoid tumor. PET scan was negative for uptake. There was also a significant right pleural effusion which had been persistent on his studies and was likely related to heart failure from his mitral regurgitation, decreased ejection fraction, and recent myocardial infarction. The patient was referred to Dr. Villa from cardiothoracic surgery. He was recommended to undergo robotic-assisted left thoracoscopic lower lobectomy. The usual perioperative course was discussed in detail with the patient, all risks and benefits were explained, all questions were answered, and consent was obtained to proceed with surgery. HOSPITAL COURSE: The patient was brought to the hospital on 10/19/2018, taken to the preoperative area, prepared in the usual fashion, and subsequently taken to the operating room where Dr. Villa performed right chest tube placement and left robotic-assisted thoracoscopic pneumonectomy with mediastinal lymph node dissection. Upon completion of surgery the patient was extubated in taken to the recovery room where he was monitored hemodynamically. Orders were placed for admission to [address] [place] [address] cardiac stepdown unit, however there was no bed availability and the patient was taken to the intensive care unit as an overflow for continued recovery. He continued to progress well, and his chest tube was discontinued on postop day #1. He did have an episode of urinary retention requiring straight cath 1 but resolved on its own. His oxygen was titrated down, he was tolerating oral diet, his pain was controlled, and he was ready to be discharged to home on postoperative day #2. He received written and verbal instruction regarding his medications, activity restrictions , signs and symptoms requiring physician notification, and follow-up appointments. COMPLICATIONS: The patient experienced no postoperative complications. Plan - Discharge Summary Discharge Rx Participant: Yes New Discharge Prescriptions: Continue Loperamide HCl [Imodium A-D] 2 mg PO DAILY PRN PRN Reason: Diarrhea Aspirin 81 mg PO DAILY #30 chew Atorvastatin [Lipitor] 40 mg PO HS #30 tablet Clopidogrel [Plavix] 75 mg PO DAILY #30 tab Furosemide [Lasix] 40 mg PO DAILY #30 tab Tamsulosin [Flomax] 0.4 mg PO HS 30 Days #30 tab Metoprolol Succinate (ER) [Toprol XL] 25 mg PO QAM Lisinopril [Zestril] 5 mg PO QAM Discharge Medication List Loperamide HCl [Imodium A-D] 2 mg PO DAILY PRN 08/11/18 [History] Aspirin 81 mg PO DAILY #30 chew 08/15/18 [Rx] Atorvastatin [Lipitor] 40 mg PO HS #30 tablet 08/15/18 [Rx] Clopidogrel [Plavix] 75 mg PO DAILY #30 tab 08/15/18 [Rx] Furosemide [Lasix] 40 mg PO DAILY #30 tab 10/09/18 [Rx] Tamsulosin [Flomax] 0.4 mg PO HS 30 Days #30 tab 08/15/18 [Rx] Lisinopril [Zestril] 5 mg PO QAM 10/16/18 [History] Metoprolol Succinate (ER) [Toprol XL] 25 mg PO QAM 10/16/18 [History] Follow up Appointment(s)/Referral(s): Channing Villa MD [STAFF PHYSICIAN] - 11/02/18 1:00 pm Soledad Joiner MD [STAFF PHYSICIAN] - 11/09/18 2:45 pm Ambulatory/Diagnostic Orders: XR chest 2V [RAD.AMB] Time Frame: 11/02/18, Facility: [facility], Location: [facility] Activity/Diet/Wound Care/Special Instructions: DISCHARGE INSTRUCTIONS: 1. No driving for 2 weeks, or until physician gives their ok. 2. No lifting, pushing, or pulling more than 10 pounds for 2 weeks. The physician will advise of any restriction changes. 3. Continue pain control per as needed orders. May alternate Tylenol with Motrin for pain. 4. Continue with incentive spirometry and splinting until otherwise directed by the physician. 5. May shower daily starting October 22 using liquid antibacterial soap. 6. Routine incision care. No powders, lotions, ointments on incisions. May cover incisions if they are draining. 7. Please call surgeon/[facility] for temp greater than 101 F or purulent drainage from incisions. Discharge Disposition: HOME SELF-CARE
--- NOTE | 2018-10-21 14:14 | P.PN ---
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 This is a 68-year-old white male recently diagnosed as having carcinoid involving the left lower lobe. Patient presented to our office, and he was seen by Dr. Joiner for a left lower lobe mass which was incidentally discovered when he presented in August with acute myocardial infarction requiring cardiac catheterization and right coronary artery angioplasty stenting was performed. His echocardiogram at that time showed mild-to- moderate LV dysfunction, and mild to moderate aortic insufficiency. Patient had full workup for his left lower lobe mass, it was 3 cm in size, involving the left lower lobe centrally and it was biopsy-proven to be carcinoid. PET scan was negative. Patient was also noted to have chronic right-sided pleural effusion for some time felt to be cardiac related. Today the patient underwent elective pneumonectomy, placement of a right-sided chest tube, and his postoperative course was relatively uneventful. Patient was extubated in the recovery room, transferred to the ICU on nasal cannula, patient is in no form of distress. He is basically asymptomatic. Denies any cough no wheezing no shortness of breath, denies any chest pain. Chest x-ray showed postoperative changes on the left side, and a right sided chest tube. No evidence of pleural effusion. Patient denies any headache, no blurred vision, no dizziness. Denies any chest pain, no palpitations, no nausea no vomiting no abdominal pain no melena no hematemesis is no dysuria and no frequency no urgency. Patient is known to have history of prostate cancer, underwent previous radiation. Baseline PFT in the office showed FEV1 2.4, 71% of the predicted value. Patient is seen today 10/20/2018 in follow-up in the intensive care unit. This is postoperative day #1 following a left pneumonectomy secondary to carcinoid and right-sided chest tube placement secondary to pleural effusion. Chest x- ray reviewed. Chest tube was removed today. He is seen in the intensive care unit as a selective care unit overflow. He is currently awake and alert in no acute distress. He is maintaining good O2 saturations in the low 90s on room air. He is working well with the incentive spirometer. He's been afebrile. Hemodynamically stable. White count 7.7. Hemoglobin 9.7. Creatinine 0.88. Patient seen again today 10/21/2018 in follow-up on the selective care unit. He is awake and alert in no acute distress. He denies any worsening shortness of breath, cough or congestion. He is maintaining good O2 saturations in the 90s on room air. He is working well with the incentive spirometer. He has been afebrile. Hemodynamically stable. He had some issues with urinary retention but is voiding well today. Objective - Vital Signs Vital signs: Vital Signs Temp 98.2 F 10/21/18 08:00 Pulse 80 10/21/18 12:40 Resp 18 10/21/18 08:00 BP 117/61 10/21/18 08:00 Pulse Ox 94 L 10/21/18 09:01 Intake & Output 10/20/18 10/21/18 10/21/18 18:59 06:59 18:59 Intake Total 800 200 Output Total 805 1200 Balance -805 -400 200 Weight 88 kg Intake: Oral 800 200 Output: Chest Tube Drainage 30 Pleural Catheter Right 30 Urine 775 1200 Straight 400 Uretheral (Dumont) 575 Other: Voiding Method Indwelling Catheter Indwelling Catheter # Voids 1 - Exam GENERAL EXAM: Alert, fairly comfortable in no apparent distress. On room air. HEAD: Normocephalic. EYES: Normal reaction of pupils, equal size. NOSE: Clear with pink turbinates. THROAT: No erythema or exudates. NECK: No masses, no JVD. CHEST: No chest wall deformity. LUNGS: Rhonchi in the right chest diminished on the left. CVS: S1 and S2 normal with no audible murmur, regular rhythm. ABDOMEN: No hepatosplenomegaly, normal bowel sounds, no guarding or rigidity. SPINE: No scoliosis or deformity SKIN: No rashes CENTRAL NERVOUS SYSTEM: No focal deficits, tone is normal in all 4 extremities. EXTREMITIES: There is no peripheral edema. No clubbing, no cyanosis. Peripheral pulses are intact. - Labs CBC & Chem 7: 10/20/18 06:04 10/20/18 06:04 Assessment and Plan Assessment: Impression: 1 status post left-sided pneumonectomy for 3 cm central left lower lobe carcinoid tumor. 2 status post right chest tube placement for chronic right-sided pleural effusion. 3 remote history of tobacco use. 4 coronary artery disease, previous stenting of the RCA. 5. hypercholesterolemia 6 history of prostate cancer 7 history of benign essential hypertension. Plan: The patient was seen and evaluated by Dr. Gann. He is cleared for discharge from the pulmonary standpoint. He'll follow up with Dr. Joiner in our office in 1-2 weeks' time. He and has are both encouraged to call sooner with any questions or concerns. I, the cosigning physician, performed a history & physical examination of the patient. Lungs sounds with rhonchi in the right, diminished on the left. Maintaining good O2 saturations in the 90s on room air. I discussed the assessment and plan of care with my nurse practitioner, Coretta Juan. I attest to the above note as dictated by her.
[2018-10-21] MEDS: ATORVASTATIN 40 MG TAB PO SCH (19:49)
[2018-10-21] MEDS: TAMSULOSIN 0.4 MG CAP.ER.24H PO SCH (19:49)
[2018-10-22] MEDS: HEPARIN SODIUM,PORCINE 5,000 UNIT/ML 1 ML VIAL SQ SCH ×2 (00:39→08:53)
[2018-10-22] MEDS: KETOROLAC 30 MG/ML 1 ML VIAL IVP SCH ×2 (02:49→08:54)
[2018-10-22] MEDS: IPRATROPIUM-ALBUTEROL 3 ML NEB IH SCH ×2 (07:47→11:33)
[2018-10-22] MEDS ORDERED: MAGNESIUM HYDROXIDE 2,400 MG/10 ML CUP PO PRN (08:40)
[2018-10-22] MEDS ORDERED: SENNOSIDES-DOCUSATE SODIUM 1 EACH TAB PO STA (08:42)
[2018-10-22] MEDS: CLOPIDOGREL 75 MG TAB PO SCH (08:52)
[2018-10-22] MEDS: FUROSEMIDE 40 MG TAB PO SCH (08:52)
[2018-10-22] MEDS: METOPROLOL SUCCINATE (ER) 25 MG TAB.ER.24H PO SCH (08:52)
[2018-10-22] MEDS: ASPIRIN 81 MG PO SCH (08:53)
[2018-10-22] MEDS: traMADol 50 MG TAB PO SCH (08:53)
--- NOTE | 2018-10-22 10:02 | P.PN ---
Subjective Progress Note Date: 10/22/18 Principal diagnosis: Carcinoma left lower lobe of the lung. Right pleural effusion. Previous medical history of moderate COPD with preoperative FEV1 68% of predicted, prostate cancer status post radiation, recent myocardial infarction with stent placement to the right coronary artery in August 2018, chronic systolic heart failure with ejection fraction 40-45% with moderate mitral regurgitation and mild to moderate aortic insufficiency, hypertension, hyperlipidemia. POD #2 right chest tube placement, left robotic assisted thoracoscopic pneumonectomy with mediastinal lymph node dissection. Patient's currently sitting up in bed in no acute distress. States pain is controlled on current pain medication regimen. Denies shortness of breath. Patient had difficulty emptying his bladder last night requiring straight cath, so he did not get discharged to home. He was able to void a few times during the night. The patient does state he does not think he completely empties his bladder at home and he just saw Dr. Gotti in the office about 2 weeks ago. Objective - Vital Signs Vital signs: Vital Signs Temp 98.8 F 10/21/18 20:00 Pulse 88 10/22/18 07:58 Resp 18 10/22/18 03:34 BP 152/70 10/22/18 03:34 Pulse Ox 94 L 10/22/18 03:34 Intake & Output 10/21/18 10/22/18 10/22/18 18:59 06:59 18:59 Intake Total 440 200 240 Output Total 50 100 Balance 440 150 140 Weight 87.8 kg Intake: Oral 440 200 240 Output: Urine 50 100 Other: Voiding Method Indwelling Catheter Urinal # Voids 1 - Constitutional General appearance: Present: cooperative, no acute distress - Respiratory Details: Lungs sounds diminished on the left, clear on the right. Respirations even, nonlabored. Currently on room air with oxygen saturation 94%. Able to achieve 1500 mL on his incentive spirometry. - Cardiovascular Details: S1, S2 present. Regular rate and rhythm, sinus rhythm on telemetry. Palpable peripheral pulses bilaterally. No edema present. No calf pain or tenderness noted. - Gastrointestinal Gastrointestinal Comment(s): Abdomen soft, nontender, nondistended. Active bowel sounds 4 quadrants. Tolerating diet. No bowel movement since before surgery. - Genitourinary Genitourinary Comment(s): Patient voided 3 times overnight after straight cath yesterday evening. Bladder scan was completed at one point with residual over 400 mL in the bladder , patient was able to void over 200 mL after that bladder scan. - Integumentary Integumentary Comment(s): Skin is warm and dry with evidence of good perfusion left lateral incision sites well approximated without drainage - Neurologic Neurologic: Present: CNII-XII intact - Musculoskeletal Musculoskeletal: Present: gait normal, strength equal bilaterally - Psychiatric Psychiatric: Present: A&O x's 3, appropriate affect, intact judgment & insight - Allied health notes Allied health notes reviewed: nursing - Labs CBC & Chem 7: 10/20/18 06:04 10/20/18 06:04 Assessment and Plan (1) Previous myocardial infarction older than 8 weeks Current Visit: No Status: Resolved Code(s): I25.2 - OLD MYOCARDIAL INFARCTION SNOMED Code(s): 4250259 (2) H/O heart artery stent Current Visit: Yes Status: Chronic Code(s): Z95.5 - PRESENCE OF CORONARY ANGIOPLASTY IMPLANT AND GRAFT SNOMED Code(s): 223779112 (3) Hypertension Current Visit: Yes Status: Chronic Code(s): I10 - ESSENTIAL (PRIMARY) HYPERTENSION SNOMED Code(s): 63157123 (4) Hyperlipidemia Current Visit: Yes Status: Chronic Code(s): E78.5 - HYPERLIPIDEMIA, UNSPECIFIED SNOMED Code(s): 34975659 (5) COPD (chronic obstructive pulmonary disease) Current Visit: Yes Status: Chronic Code(s): J44.9 - CHRONIC OBSTRUCTIVE PULMONARY DISEASE, UNSPECIFIED SNOMED Code(s): 15798901 (6) History of prostate cancer Current Visit: No Status: Resolved Code(s): Z85.46 - PERSONAL HISTORY OF MALIGNANT NEOPLASM OF PROSTATE SNOMED Code(s): 832252200 (7) Mass of lower lobe of left lung Current Visit: Yes Status: Chronic Code(s): R91.8 - OTHER NONSPECIFIC ABNORMAL FINDING OF LUNG FIELD SNOMED Code(s): 499067395 Plan: 1. Right pleural chest tube discontinued without incident on Tuesday. Repeat chest x-ray stable. 2. Stool softener ordered. 3. Encourage incentive spirometry use 10 times every hour while awake. 4. Increase activity, ambulate in the hallway. 5. Pain controlled current medication regimen. 6. As patient states he does not feel he completely empties his bladder at home , he may be discharged today. He was advised to follow up with Dr. Gotti sooner than his May appointment. Time with Patient: Greater than 30
[2018-10-22] MEDS: LISINOPRIL 5 MG TAB PO SCH (10:06)
[2018-10-22 11:53] VITALS: BP 162/70; PULSE 86; TEMP 97.6
== END 2018-10-22 11:54 | disposition home or self-care (01) | DRG 164 ==
LOC: 2ORMAIN 05:26 → 2SICU 11:38 → 3SCARD 10-20 14:39
PROVIDERS: ADMIT Thoracic Surgery (Cardiothoracic Vascular Surgery); ATTEND Thoracic Surgery (Cardiothoracic Vascular Surgery)
PROC: 8E0W4CZ Robotic Assisted Procedure of Trunk Region, Percutaneous Endoscopic Approach (ICD-10-PCS; 2018-10-19)
PROC: 0W9930Z Drainage of Right Pleural Cavity with Drainage Device, Percutaneous Approach (ICD-10-PCS; 2018-10-19)
PROC: 0BTJ4ZZ Resection of Left Lower Lung Lobe, Percutaneous Endoscopic Approach (ICD-10-PCS; principal; 2018-10-19 07:30)
PROC: 07B74ZX Excision of Thorax Lymphatic, Percutaneous Endoscopic Approach, Diagnostic (ICD-10-PCS; 2018-10-19 07:30)
DX: C34.32 Malignant neoplasm of lower lobe, left bronchus or lung (principal); I50.22 Chronic systolic (congestive) heart failure; Z85.46 Personal history of malignant neoplasm of prostate; Z92.3 Personal history of irradiation; E78.00 Pure hypercholesterolemia, unspecified; E78.5 Hyperlipidemia, unspecified; I08.0 Rheumatic disorders of both mitral and aortic valves; I11.0 Hypertensive heart disease with heart failure; I25.10 Atherosclerotic heart disease of native coronary artery without angina pectoris; I25.2 Old myocardial infarction; J44.9 Chronic obstructive pulmonary disease, unspecified; Z79.02 Long term (current) use of antithrombotics/antiplatelets; Z79.82 Long term (current) use of aspirin; Z80.3 Family history of malignant neoplasm of breast; Z82.49 Family history of ischemic heart disease and other diseases of the circulatory system; Z87.891 Personal history of nicotine dependence; Z95.5 Presence of coronary angioplasty implant and graft
CPT/HCPCS: 71045; 71046; 80048; 85025; 86850; 86900; 86901; 88108; 88305; 94640; 94760

== ENCOUNTER → 2018-11-02 | Outpatient (CLI) | payer MEDICARE ==
--- NOTE | 2018-11-02 09:24 | XR ---
EXAMINATION TYPE: XR chest 2V DATE OF EXAM: 11/02/2018 HISTORY: POST LEFT PNEUMONECTOMY COMPARISON: 10/21/2018 TECHNIQUE: Single view of the chest is submitted. FINDINGS: Left-sided pneumonectomy change with the increasing fluid within the left hemithorax. Right lung is c lear. The heart is stable. Hilar and mediastinal structures are within normal limits. Degenerative changes are seen of the dorsal spine. IMPRESSION: 1. Left-sided pneumonectomy change with the increasing fluid within the left hemithorax.
== END ==
LOC: RADXRMAIN 08:57
PROVIDERS: ATTEND Nurse Practitioner Acute Care
DX: Z09 Encounter for follow-up examination after completed treatment for conditions other than malignant neoplasm (principal); Z98.890 Other specified postprocedural states; Z90.89 Acquired absence of other organs
CPT/HCPCS: 71046

== ENCOUNTER → 2019-05-15 | Outpatient (CLI) | payer MEDICARE ==
--- NOTE | 2019-05-15 09:58 | CT ---
EXAMINATION TYPE: CT chest w con DATE OF EXAM: 05/15/2019 COMPARISON: 09/22/2018, 08/22/2018 HISTORY: Malignant tumor of lung CT DLP: 707 mGycm Automated exposure control for dose reduction was used. CONTRAST: CT scan of the chest is performed with IV Contrast, patient injected with 100 mL of Isovue 300. FINDINGS: LUNGS: Post left pneumonectomy changes seen. There is postsurgical changes. Fluid fills the left shun thorax. Right lung remains clear. No sizable nodule. Subsegmental linear changes most typical atelect asis.. Within the cyst. Segment right lower lobe axial image 33 there is a 2 mm nodule which is obscu red on the prior study due to pleural effusion. Additional subpleural less than 5 mm nodules are too small to characterize. Suspected degree of underlying COPD and very minimal interlobular septal thick ening. MEDIASTINUM: Heart is prominent there is coronary artery calcification. Atherosclerotic change of the aorta. Trace of pericardial fluid noted in the superior pericardial recess. OTHER: Chronic rib deformities are seen. Hypertrophic and degenerative change of the spine IMPRESSION: 1. Postpneumonectomy changes. 2. Sub-5 mm right-sided pulmonary nodules too small to characterize and obscured by previous pleural effusion on the prior exam. However, nodule appears stable on the previous more distant CT scan of .
== END | disposition home or self-care (01) ==
LOC: RADCTMAIN 08:19
PROVIDERS: ATTEND Internal Medicine Critical Care Medicine
DX: J90 Pleural effusion, not elsewhere classified (principal); R91.1 Solitary pulmonary nodule; C7A.090 Malignant carcinoid tumor of the bronchus and lung; Z90.2 Acquired absence of lung [part of]
CPT/HCPCS: 82565; 84520; 71260; 36415; Q9967